=== PATIENT | male | born 1945 | race Caucasian/White ===

== ENCOUNTER → 2017-03-16 | Outpatient (CLI) | payer OTHER, MEDICARE ==
[~2017-03-16] MED LIST: ASCO500T3 PO; ASPI81TA28 PO; ATOR-22 PO; CHOL100027 PO; FLAX100024; METO50TA7 PO
[2017-03-16 12:29] LABS: FREE PSA 0.77 ng/ml; PROSTATE SPECIFIC ANTIGEN 2.87 ng/ml (0.000-4.000)
== END | disposition home or self-care (01) ==
LOC: C.LABBFT 11:03
PROVIDERS: ATTEND Urology
DX: N40.1 Benign prostatic hyperplasia with lower urinary tract symptoms (principal)

== ENCOUNTER → 2017-06-29 | Outpatient (CLI) | payer OTHER, MEDICARE ==
--- NOTE | 2017-06-28 08:08 | DIAGNOSTIC IMAGING REPORT ---
ABDOMEN COMPLETE (US) CLINICAL HISTORY: 71 years-old Male with R10.9 Abdominal [id number]. Acute right upper quadrant abdominal pain. Prior cholecystectomy COMPARISON: Ultrasound of the abdomen 07/01/2015, CT 07/01/2016 TECHNIQUE: Multiple real time sonographic images of the abdomen were obtained assessing jacome-scale appearance. FINDINGS: PANCREAS: The pancreas is partially obscured by bowel gas. The visualized portions of the pancreas are normal without focal lesion or pancreatic duct dilatation. LIVER: The liver demonstrates increased echogenicity measuring up to 16.0 cm in length compatible with fatty infiltration. There is no intrahepatic bile duct dilation, focal lesion, or contour nodularity. There is no ascites. GALLBLADDER: The gallbladder is surgically absent. The common bile duct measures 0.3 cm. RIGHT KIDNEY: The right kidney measures 10.1 cm. The parenchymal echotexture and cortical thickness are normal. No nephrolithiasis or hydronephrosis. LEFT KIDNEY: The left kidney measures 10.2 cm. The parenchymal echotexture and cortical thickness are normal. No nephrolithiasis or hydronephrosis. SPLEEN: The spleen measures 11 cm and is normal in echotexture. No focal lesions are identified. VASCULATURE: The inferior vena cava and abdominal aorta are not visualized secondary to body habitus and obscuring bowel gas. IMPRESSION: 1. Fatty infiltration of the liver. 2. Prior cholecystectomy. 3. No biliary ductal dilation. The above report was generated using voice recognition software. It may contain grammatical, syntax or spelling errors. Electronically signed by: Kali Lee M.D. 06/28/2017 8:06 AM Dictated Date/Time: 06/28/2017 8:02 AM
--- NOTE | 2017-06-29 09:58 | DIAGNOSTIC IMAGING REPORT ---
(CHEST) THORAX WITHOUT CT DOSE: 502.11 mGy.cm CLINICAL HISTORY: 71 years-old Male with R91.8 Multiple pulmonary [id number]. Follow-up study to assess pulmonary nodules. TECHNIQUE: Multiaxial CT images of the chest were performed without contrast. A dose lowering technique was utilized adhering to the principles of ALARA. COMPARISON: CT chest 06/22/[address] abdomen 07/01/2015 FINDINGS: No dominant thyroid nodule identified. No pathologic adenopathy of the chest. Heart is normal in size with coronary arterial disease. Calcifications of the aortic annulus also noted. Moderate atherosclerotic plaquing of the aortic arch without aneurysm identified. Upper lobe predominant mild to moderate paraseptal emphysematous changes. Azygos lobe and fissure are present. No pneumothorax, pleural effusion or focal airspace consolidation. There are a few scattered subcentimeter calcified granulomas. Mild bilateral bronchial wall thickening. 4 mm noncalcified pulmonary nodule of the right lower lobe on image 207 of series 4 is unchanged. 5 mm solid pulmonary nodule of the right middle lobe on image 177 series 4. Unchanged 5 mm nodule of the inferior segment lingula on image 184 series 4. Unchanged 4 mm nodule within the right lower lobe on image 143 series 4. No new suspicious pulmonary nodules identified. Minimal secretions within the tracheal bronchial tree. Prior cholecystectomy. The bones appear intact and are mildly demineralized. Multilevel endplate spurring of the spine. Nonspecific perinephric stranding is again seen with thickening of the left adrenal gland suggesting adrenal hyperplasia, unchanged. IMPRESSION: 1. Stable size and appearance of the scattered solid noncalcified pulmonary nodules of the bilateral lungs as above, largest of which measures up to 5 mm. The nodules at the level of the lung bases are unchanged dating back to the CT abdomen and pelvis study of 07/01/2015. No new suspicious pulmonary nodules identified. 2. Mild to moderate upper lobe predominant paraseptal emphysema with associated bilateral mild bronchial wall thickening suggesting bronchitis. 3. Additional findings as above. Please refer to below summary of Fleischner criteria recommendations for follow-up of incidental CT nodules (Ivy Duran, Guidelines for management of small pulmonary nodules detected on CT scans: A statement from the Fleischner Society, Radiology 237: [phone].) SOLID NODULES Multiple nodules size: <6 mm * Low risk patients: no routine follow-up * high risk patients: optional CT at 12 months Note: newly detected indeterminate nodule in persons 35 years of age or older. * Low risk patients: minimal or absent history of smoking and/or other known risk factors * high risk patients: history of smoking or of other known risk factors (e.g. first degree relative with lung cancer, or exposure to asbestos, radon, uranium) * if a nodule up to 8 mm is partly solid or is ground glass further follow-up is required after 24 months to exclude possible slow growing adenocarcinoma (TONY) The above report was generated using voice recognition software. It may contain grammatical, syntax or spelling errors. Electronically signed by: Kali Lee M.D. 06/29/2017 9:56 AM Dictated Date/Time: 06/29/2017 9:41 AM
== END | disposition home or self-care (01) ==
LOC: C.CTS 09:27
PROVIDERS: ATTEND Internal Medicine Geriatric Medicine
DX: R91.8 Other nonspecific abnormal finding of lung field (principal); R10.9 Unspecified abdominal pain; J43.8 Other emphysema

== ENCOUNTER 2017-08-01 07:40 | Observation (INO) | payer OTHER, MEDICARE ==
[2017-08-01] VITALS (8 sets, daily range): BP systolic 134–152; BP diastolic 75–82; PULSE 50–56; TEMP 36.5–37.2; O2SAT 97–100; Ht 172.7 cm; Wt 88.3 kg
[~2017-08-01] VITALS: Ht 172.7 cm; Wt 88.3 kg
[2017-08-01] MEDS ORDERED: SODIUM CHLORIDE 0.9% 1000ML 1,000 ML IV STA (08:04)
[2017-08-01 08:30] LABS: BASO % 0.8 %; BASO ABS # 0.05 K/uL (0-0.2); COMPLETE YES; EOS % 1.2 %; HEMATOCRIT 39.8 % (42-52); IG% 0.3 %; LYMPH % 24.8 %; LYMPH ABS # 1.64 K/uL (1.2-3.4); MEAN CELL VOLUME 91.3 fL (80-100); MEAN CORPUSCULAR HEMOGLOBIN 31.9 pg (25-34); MEAN CORPUSCULAR HGB CONC 34.9 g/dl (32-36); MEAN PLATELET VOLUME 9.2 fL (7.4-10.4); MONO % 9.5 %; NEUT % 63.4 %; PLATELET COUNT 159 K/uL (130-400); RED BLOOD COUNT 4.36 M/uL (4.7-6.1); WHITE BLOOD COUNT 6.61 K/uL (4.8-10.8)
[2017-08-01 08:42] LABS: ALT/SGPT 44 U/L (12-78); BLOOD UREA NITROGEN 21 mg/dl (7-18); CALCIUM 9.1 mg/dl (8.5-10.1); CARBON DIOXIDE 25 mmol/L (21-32); CHLORIDE 102 mmol/L (98-107); CREATININE 1.03 mg/dl (0.60-1.40); GLUCOSE 146 mg/dl (70-99); POTASSIUM 3.9 mmol/L (3.5-5.1); SODIUM 138 mmol/L (136-145)
[2017-08-01 08:47] LABS: ALKALINE PHOSPHATASE 69 U/L (45-117); AST/SGOT 21 U/L (15-37)
--- NOTE | 2017-08-01 08:48 | DIAGNOSTIC IMAGING REPORT ---
CHEST ONE VIEW PORTABLE HISTORY: Atypical CHEST PAIN COMPARISON: Chest 07/01/2015. FINDINGS: The lungs are clear. Cardiac silhouette is normal in size. No pleural effusions. No pneumothorax. IMPRESSION: No acute process. Electronically signed by: Jose Martin Ray M.D. 08/01/2017 8:47 AM Dictated Date/Time: 08/01/2017 8:46 AM
--- NOTE | 2017-08-01 08:53 | EMERGENCY ROOM VISIT NOTE ---
ED Visit Note First contact with patient: 07:49 I have seen and examined this patient with Will Mcclain and generally agree with the treatment plan as discussed. Problem List Medical Problems: (1) Asthma Status: Chronic (2) Hx of gallstones Status: Resolved (3) Hypertension Status: Chronic (4) FL (myocardial infarction) Status: Resolved Surgical Problems: (1) H/O angioplasty Status: Resolved Current/Historical Medications Scheduled Ascorbic Acid (Vitamin C), 1 TAB PO DAILY Aspirin (Aspirin Ec), 81 MG PO QPM Atorvastatin (Lipitor), 40 MG PO DAILY Cholecalciferol (Vitamin D 1000 Unit), 1,000 INTER.UNIT PO DAILY Flaxseed (Linseed) (Flaxseed Oil), DAILY Metoprolol Succ (Toprol Xl) (Toprol-Xl), 50 MG PO DAILY Allergies Coded Allergies: Sulfa Antibiotics (Verified Allergy, Mild, ., 07/01/15) Vital Signs Date Time Temp Pulse Resp B/P (MAP) Pulse Ox O2 Delivery O2 Flow Rate FiO2 08/01/17 07:49 67 08/01/17 07:48 50 20 166/78 97 Room Air 08/01/17 07:48 97 Room Air Laboratory Results 08/01/17 08:20 Red Blood Count 4.36, Mean Corpuscular Volume 91.3, Mean Corpuscular Hemoglobin 31.9, Mean Corpuscular Hemoglobin Concent 34.9, Mean Platelet Volume 9.2, Neutrophils (%) (Auto) 63.4, Lymphocytes (%) (Auto) 24.8, Monocytes (%) (Auto) 9.5, Eosinophils (%) (Auto) 1.2, Basophils (%) (Auto) 0.8, Neutrophils # (Auto) 4.19, Lymphocytes # (Auto) 1.64, Monocytes # (Auto) 0.63, Eosinophils # (Auto) 0.08, Basophils # (Auto) 0.05 08/01/17 08:20 Test 08/01/17 08:20 08/01/17 08:21 White Blood Count 6.61 K/uL (4.8-10.8) Red Blood Count 4.36 M/uL (4.7-6.1) Hemoglobin 13.9 g/dL (14.0-18.0) Hematocrit 39.8 % (42-52) Mean Corpuscular Volume 91.3 fL (80-100) Mean Corpuscular Hemoglobin 31.9 pg (25-34) Mean Corpuscular Hemoglobin Concent 34.9 g/dl (32-36) Platelet Count 159 K/uL (130-400) Mean Platelet Volume 9.2 fL (7.4-10.4) Neutrophils (%) (Auto) 63.4 % Lymphocytes (%) (Auto) 24.8 % Monocytes (%) (Auto) 9.5 % Eosinophils (%) (Auto) 1.2 % Basophils (%) (Auto) 0.8 % Neutrophils # (Auto) 4.19 K/uL (1.4-6.5) Lymphocytes # (Auto) 1.64 K/uL (1.2-3.4) Monocytes # (Auto) 0.63 K/uL (0.11-0.59) Eosinophils # (Auto) 0.08 K/uL (0-0.5) Basophils # (Auto) 0.05 K/uL (0-0.2) RDW Standard Deviation 43.9 fL (36.4-46.3) RDW Coefficient of Variation 13.2 % (11.5-14.5) Immature Granulocyte % (Auto) 0.3 % Immature Granulocyte # (Auto) 0.02 K/uL (0.00-0.02) Anion Gap 11.0 mmol/L (3-11) Est Creatinine Clear Calc Drug Dose 49.0 ml/min Estimated GFR () 85.5 Estimated GFR (Non- 73.8 BUN/Creatinine Ratio 20.0 (10-20) Calcium Level 9.1 mg/dl (8.5-10.1) Total Bilirubin 0.7 mg/dl (0.2-1) Direct Bilirubin 0.2 mg/dl (0-0.2) Aspartate Amino Transf (AST/SGOT) 21 U/L (15-37) Alanine Aminotransferase (ALT/SGPT) 44 U/L (12-78) Alkaline Phosphatase 69 U/L (45-117) Troponin I < 0.015 ng/ml (0-0.045) Total Protein 6.9 gm/dl (6.4-8.2) Albumin 3.8 gm/dl (3.4-5.0) Lipase 214 U/L (73-393) Bedside Troponin I < 0.030 ng/ml (0-0.045) Departure Information Referrals Eric Rees M.D. (PCP) Patient Instructions [facility]
[2017-08-01] MEDS ORDERED: ALUMINUM/MAGNESIUM/SIMETH (MAALOX MAX) 30 ML UDC PO PRN (09:00)
[2017-08-01] MEDS: ASPIRIN 325 MG ECTAB PO SCH (09:00)
[2017-08-01] MEDS: ATORVASTATIN 40 MG TAB PO SCH (09:00)
[2017-08-01] MEDS ORDERED: MoRPHine SULFATE 2 MG/ML CARP IV PRN (09:00)
[2017-08-01] MEDS ORDERED: METOPROLOL SUCC 50MG EXT REL TAB PO SCH (09:00)
[2017-08-01] MEDS ORDERED: ACETAMINOPHEN 325 MG TAB PO PRN (09:00)
[2017-08-01] MEDS ORDERED: NITROGLYCERIN 0.4 MG SL PER TAB CHARGE SL PRN (09:00)
[2017-08-01] MEDS ORDERED: ONDANSETRON INJ 2 MG/ML 2 ML VIAL IV PRN (09:00)
[2017-08-01] MEDS ORDERED: MAGNESIUM HYDROXIDE SUSP 30 ML UDC PO PRN (09:00)
[2017-08-01] MEDS ORDERED: ATOR80TA PO (09:01)
[2017-08-01] MEDS ORDERED: HydrALAZINE HCL 20 MG/ML VIAL IV PRN (09:30)
[2017-08-01] MEDS ORDERED: NURSING VERBAL MED ORDER ONE (10:30)
[2017-08-01] MEDS ORDERED: IV FLUIDS COMPLETED PRN (12:30)
--- NOTE | 2017-08-01 13:34 | CARDIOLOGY CONSULTATION ---
DATE OF CONSULTATION: 08/01/2017 REASON FOR CONSULTATION: Accelerating chest pain. CONSULTATION REQUESTED BY: Dr. Waters. HISTORY OF PRESENT ILLNESS: Mr. Dugan is a 71-year-old man with a history of coronary artery disease status post prior DC in the s, hypertension, diet-controlled diabetes, hyperlipidemia, prior peripheral vascular disease status post carotid endarterectomy who presents with worsening chest pain over the last several weeks. The patient states that he has been having episodes of chest discomfort for the last 3 months. He describes episodes of substernal tightness with radiation to his arms bilaterally and occasionally to his jaw. This is occasionally associated with diaphoresis and flushing. These episodes can occur at any time most notably when he is exerting himself but not always. Denies any associated palpitations, presyncope. Denies any heart failure symptoms. He presented to the Emergency Department last night because episodes of syncope occurring more frequently over the last several weeks including 2 over the last day. These episodes last for several minutes and go away just with rest. Upon presentation, the patient was hemodynamically stable. He was bradycardic with heart rates down in the 50s. His EKG showed sinus rhythm with no dynamic ST changes with supportive care and subsequent troponins were negative. Since admission, he has been chest pain free. PRIOR CARDIAC HISTORY: The patient was previously followed by Dr. العراقي and was last seen by him in May 2015. He initially underwent a cardiac catheterization in 1995 in the setting of a mildly elevated troponin while had pneumonia. Per documentation, he was found to have nonocclusive coronary artery disease with a 50% RCA and 2 serial 50% LAD lesions and was treated with medical management. Since that time, he underwent multiple prior stress tests, most recently had a nuclear stress test done in February of 2014. At that time, the patient was bradycardic at rest while on beta collin. He was only able to get his heart rate to 57% maximum predicted, he exercised for 7 minutes achieving 9 mets. Stress test was read as negative for any ischemia or infarct with preserved EF of 54%. The patient is also followed by Dr. Valderrama for his vascular disease. He is status post s carotid endarterectomy in 2008 and has no residual moderate disease on the left, was endorsing some symptoms consistent with claudication. Back in 2015, underwent a CTA which showed moderate right common femoral artery disease and significant right anterior tibial disease with distal 3-vessel runoff and was also noted to have severe 80% stenosis at the orgin of his left superficial femoral artery. PAST MEDICAL HISTORY: 1. Coronary artery disease status post DC as discussed above. 2. Hypertension. 3. Hyperlipidemia. 4. Diabetes, on oral therapy. 5. Pulmonary nodules. 6. PTSD. 7. Prior cholecystitis status post cholecystectomy with a partial small bowel resection at that time. FAMILY HISTORY: A brother had an DC in his 40s and underwent bypass surgery at that time and has since had 17 stents her patient. SOCIAL HISTORY: Remote smoker. Denies any tobacco or alcohol now. He is . HOME MEDICATIONS: Include aspirin 81, atorvastatin 80, lisinopril/hydrochlorothiazide 25/25, Proventil inhaler, vitamin B12, and vitamin D. ALLERGIES: ALLERGIC TO SULFA DRUGS. REVIEW OF SYSTEMS: Ten-point review of systems completed and otherwise negative unless stated in HPI. PHYSICAL EXAMINATION: VITAL SIGNS: Temperature 36.5, pulse 50, blood pressure 144/82 and he is satting 98% on room air. GENERAL: The patient appears comfortable, in no acute distress. HEENT: Sclerae are anicteric. Oropharynx clear. His mucous membranes are moist. NECK: Supple. He has no lymphadenopathy. He has no carotid bruits. LUNGS: Clear to auscultation bilaterally. HEART: He has distant heart sounds, but no appreciable murmurs, rubs or gallops. He is bradycardic. ABDOMEN: Soft. He has mild tenderness in the epigastric region with deep palpation, otherwise no hepatosplenomegaly. EXTREMITIES: Warm with intact distal perfusion/capillary refill. He has nonpalpable PT pulses bilaterally. He has 2+ DP on the left, 1+ on the right. He has 2+ radial pulses bilaterally. SKIN: Shows no rashes or lesions. NEUROLOGIC: Nonfocal. PSYCHIATRIC: He is alert and appropriate. LABORATORY DATA: Hemoglobin is 13.9, platelets of 159. Sodium of 138, potassium of 3.9, BUN 21, creatinine of 1.0. LFTs within normal limits. Troponin negative. IMAGING DATA: Chest x-ray shows no acute cardiopulmonary process. EKG shows sinus bradycardia and a ventricular rate of [address] changes. Telemetry reviewed and shows no significant abnormalities. IMPRESSION AND PLAN: 1. Chest pain, concerning for accelerating angina. 2. History of coronary artery disease status post prior myocardial infarction in the 90s. 3. Peripheral vascular disease. 4. Diet-controlled diabetes. 5. Hypertension. 6. Hyperlipidemia. 7. Sinus bradycardia with questionable prior chronotropic incompetence. Mr. Dugan is here with chest pain concerning for accelerating angina over the last 2 weeks. His description of event is typical for coronary ischemia and with patient's prior history, risk factors including his significant family history, concern for possible unstable angina/ACS is elevated. With prior non-diagnostic stress tests in the past patient's preference is to proceed with definitive evaluation and feel that proceeding directly with cardiac catheterization is reasonable. Discussed with the patient risks, benefits, alternatives of the procedure, he is willing to proceed. We will plan on coronary angiography via right radial artery tomorrow. In the interim, please keep the patient n.p.o. pat midnight, continue on aspirin, high intensity statin. Will continue off beta collin in the setting of his bradycardia. Blood pressure well controlled on home lisinopril. Post ischemic evaluation will consider additional work-up of chronotropic incompetence as needed. Thank you for allowing us to participate in the care of this patient. Please contact with any questions. BEA
--- NOTE | 2017-08-01 14:45 | History and Physical ---
History & Physical Date & Time of Service: Aug 01, 2017 at 14:36 Chief Complaint: Chest Pain Primary Care Physician: Eric Rees M.D. History of Present Illness 71-year-old male who presents to the emergency department with what sounds like accelerated anginal symptoms. These include decreased exercise tolerance or last 2 months and chest pressure or heaviness associated with diaphoresis looking pale according to his and fatigue. He does not have any nausea and occasional jaw pain. Most recently he was awakened at 4:00 the day of presentation with this discomfort which lasted 5 minutes and went away he then tried to walk his dog around 6:00 in the symptoms recurred. He then presented to the ER where his initial evaluation did not include any significant abnormalities however the patient does have a previous history of NE in 1995 strong family history having a brother having multiple cardiac stents, currently being treated for hypertension and dyslipidemia. Patiently brought in our facility with consideration for risk stratification with this being unstable angina Past Medical/Surgical History Medical Problems: (1) Asthma Status: Chronic (2) Hypertension Status: Chronic (3) NE (myocardial infarction) Status: Resolved Surgical Problems: (1) H/O angioplasty Status: Resolved Family History Gallbladder disease Heart disease Hypertension Lung disease Social History Smoking Status: Former Smoker Drug Use: none Marital Status: Occupational Status: retired Immunizations History of Influenza Vaccine: No History of Tetanus Vaccine?: No History of Pneumococcal: Yes Pneumococcal Date: Sep 06, 2005 History of Hepatitis B Vaccine: No Multi-Drug Resistant Organisms History of MDRO: No Allergies Coded Allergies: Sulfa Antibiotics (Verified Allergy, Mild, ., 08/01/17) Home Medications Scheduled Ascorbic Acid (Vitamin C), 1 TAB PO DAILY Aspirin (Aspirin Ec), 81 MG PO QPM Atorvastatin Calcium (Lipitor), 80 MG PO PM Cholecalciferol (Vitamin D 1000 Unit), 1,000 INTER.UNIT PO DAILY Flaxseed (Linseed) (Flaxseed Oil), DAILY Review of Systems ROS: well nourished well developed No double vision blurry vision No problems with speech or swallowing No palpitations, but having intermittent chest pain and pressure No Wheezing or but having some dyspnea associated with symptoms No abdominal pain nausea vomiting diarrhea changes in appetite or weight No burning urine urine frequency or changes in color No focal joint pain or muscle pain No skin rashes or oral lesions No unusual bruising or bleeding No focused back pain or numbness or loss of strength No changes in memory or confusion Physical Exam Vital Signs Date Time Temp Pulse Resp B/P (MAP) Pulse Ox O2 Delivery O2 Flow Rate FiO2 08/01/17 12:10 36.5 50 16 144/82 (102) 98 Room Air 08/01/17 12:00 99 Room Air 08/01/17 10:30 36.6 52 17 139/82 (101) 100 Room Air 08/01/17 09:57 144/78 98 08/01/17 09:20 97 Room Air 08/01/17 07:49 67 08/01/17 07:48 50 20 166/78 97 Room Air 08/01/17 07:48 97 Room Air General Appearance: WD/WN, no apparent distress Head: normocephalic, atraumatic Eyes: PERRL, EOMI ENT: hearing grossly normal, pharynx normal Respiratory/Chest: chest non-tender, lungs clear, normal breath sounds Cardiovascular: regular rate, rhythm, no murmur Abdomen/GI: normal bowel sounds, non tender, soft Back: no CVA tenderness, no muscle spasm, normal range of motion Extremities/Musculoskelatal: no pedal edema, normal range of motion Neurologic/Psych: alert, oriented x 3 Skin: normal color, warm/dry, no rash Diagnostics Laboratory Results Results Past 24 Hours Test 08/01/17 08:20 08/01/17 08:21 Range/Units White Blood Count 6.61 4.8-10.8 K/uL Red Blood Count 4.36 4.7-6.1 M/uL Hemoglobin 13.9 14.0-18.0 g/dL Hematocrit 39.8 42-52 % Mean Corpuscular Volume 91.3 80-100 fL Mean Corpuscular Hemoglobin 31.9 25-34 pg Mean Corpuscular Hemoglobin Concent 34.9 32-36 g/dl Platelet Count 159 130-400 K/uL Mean Platelet Volume 9.2 7.4-10.4 fL Neutrophils (%) (Auto) 63.4 % Lymphocytes (%) (Auto) 24.8 % Monocytes (%) (Auto) 9.5 % Eosinophils (%) (Auto) 1.2 % Basophils (%) (Auto) 0.8 % Neutrophils # (Auto) 4.19 1.4-6.5 K/uL Lymphocytes # (Auto) 1.64 1.2-3.4 K/uL Monocytes # (Auto) 0.63 0.11-0.59 K/uL Eosinophils # (Auto) 0.08 0-0.5 K/uL Basophils # (Auto) 0.05 0-0.2 K/uL RDW Standard Deviation 43.9 36.4-46.3 fL RDW Coefficient of Variation 13.2 11.5-14.5 % Immature Granulocyte % (Auto) 0.3 % Immature Granulocyte # (Auto) 0.02 0.00-0.02 K/uL Sodium Level 138 136-145 mmol/L Potassium Level 3.9 3.5-5.1 mmol/L Chloride Level 102 98-107 mmol/L Carbon Dioxide Level 25 21-32 mmol/L Anion Gap 11.0 3-11 mmol/L Blood Urea Nitrogen 21 7-18 mg/dl Creatinine 1.03 0.60-1.40 mg/dl Est Creatinine Clear Calc Drug Dose 49.0 ml/min Estimated GFR () 85.5 Estimated GFR (Non- 73.8 BUN/Creatinine Ratio 20.0 10-20 Random Glucose 146 70-99 mg/dl Calcium Level 9.1 8.5-10.1 mg/dl Total Bilirubin 0.7 0.2-1 mg/dl Direct Bilirubin 0.2 0-0.2 mg/dl Aspartate Amino Transf (AST/SGOT) 21 15-37 U/L Alanine Aminotransferase (ALT/SGPT) 44 12-78 U/L Alkaline Phosphatase 69 45-117 U/L Troponin I < 0.015 0-0.045 ng/ml Total Protein 6.9 6.4-8.2 gm/dl Albumin 3.8 3.4-5.0 gm/dl Lipase 214 73-393 U/L Hepatitis C Antibody Screen NEG NEG Bedside Troponin I < 0.030 0-0.045 ng/ml CXR normal other (no acute ECG changes except for bradycardia) Impression Assessment and Plan 71-year-old male with unstable or accelerated angina Patiently run or facility trending his troponin audiology consultation for possible catheterization versus stress test maintaining aspirin and Lipitor. We are holding on a beta collin therapy due to his resting baseline bradycardia For hypertension control maintain his lisinopril with when necessary hydralazine we are holding his hydrochlorothiazide was It is noted in his history of a description of a 4 mm right lung nodule this is reportedly stable but this will be followed with a pulmonary nodule program DVD preventions early ambulation Advanced Directives Existing Living Will: Yes Existing Power of Product Technician: Yes VTE Prophylaxis VTE Risk Assessment Done? Y/N: Yes Risk Level: Moderate Given or contraindicated: T.E.D. Stockings, SCD's
[2017-08-02] VITALS (19 sets, daily range): BP systolic 100–162; BP diastolic 62–84; PULSE 51–82; TEMP 36.6–36.8; O2SAT 95–98
--- NOTE | 2017-08-02 06:00 | EMERGENCY ROOM VISIT NOTE ---
ED Visit Note First contact with patient: 07:49 Chief Complaint: Chest pain. History of Present Illness: Mr. Dugan is a 71 year-old white male ambulates into the ED accompanied by female friend complaining of chest pain. Historically patient reports history of acute NE at age 49, diabetes, peripheral vascular disease, hypertension and dyslipidemia. Additionally he does report that he has a brother with severe coronary artery disease and has had 14 stents placed. Patient reports over the last 2 months he has been having daily episodes of chest discomfort. These occur at rest and with activity. They self resolve after a few minutes of rest. Patient reports intermittently these episodes have been associated with shortness of breath, diaphoresis and nausea but not every time he has an episode of discomfort. Both he and his does report that they've been increasing in regularity and over the last few days he has had multiple episodes. Patient reports approximately 4 AM he was awoken from sleep with an acute onset of midsternal chest tightness. This episode lasted for approximately 3-4 minutes and then self resolved. He reports associated with this he had pain in his upper shoulders. He did not identify any aggravating or alleviating factors related to the discomfort. He did not take any medication for discomfort prior to arrival at the hospital. Associated with his pain he reports he did not feel short of breath with his reports she noticed that he appeared to be having difficulty breathing. He goes on to report while he was awake at 6 AM he had a second episode of chest tightness. Once again this lasted for 3-4 minutes and self resolved. He did have bilateral arm discomfort but this was in the lower arms this time and not in the shoulders. And once again he did not take any medications for his discomfort prior to arrival at the hospital. Currently he is symptom-free. Patient denies fevers, chills, sweats, skin eruptions, skin color changes, upper respiratory tract symptoms, wheezing, cough, orthopnea, dependent edema, previous clots, claudication, cramping, abdominal pain, nausea, vomiting, diarrhea, constipation, rectal bleeding, black/tarry stools, urinary symptoms, back/flank pain. Review of Systems: As noted above in history of present illness. All body systems were reviewed and found to be negative as noted above. Past Medical History: As previously noted Current Medications: Medications Dose Route/Sig Max Daily Dose Days Date Category Lipitor (Atorvastatin Calcium) 80 Mg Tab 80 Mg PO PM 08/01/17 Reported Vitamin C (Ascorbic Acid) 500 Mg Tab 1 Tab PO DAILY 07/01/15 Reported Aspirin Ec (Aspirin) 81 Mg Tab 81 Mg PO QPM 08/20/14 Reported Vitamin D 1000 Unit (Cholecalciferol) 1,000 Unit Cap 1,000 Inter.unit PO DAILY 08/01/14 Reported Flaxseed Oil (Flaxseed (Linseed)) 1,000 Mg Cap DAILY 08/01/14 Reported Allergies to Medications: Sulfa. Social History: Patient is not currently employed; he feels safe in his home environment; he denies tobacco use. Physical Examination: Vital Signs: Date Time Temp Pulse Resp B/P (MAP) Pulse Ox O2 Delivery O2 Flow Rate FiO2 08/01/17 07:49 67 08/01/17 07:48 50 20 166/78 97 Room Air GENERAL: 71-year-old male in no acute distress, nontoxic-appearing, afebrile and hemodynamically stable. NEUROLOGICAL: Awake, alert and oriented to person, place and time. Answering questions appropriately and following commands. Normal gait. Good hand eye coordination. SKIN: Warm, dry and pink. No soft tissue eruptions or trauma noted. HEENT: Atraumatic and normocephalic. PERRLA. Sclera white and conjunctiva pink. Oral cavity moist and pink. Pharynx is nonerythematous or edematous. Speech normal. No lymphadenopathy. Trachea midline. No jugular venous distention. BACK: No tenderness over the bony spine. No CVA tenderness. No carotid bruits. THORAX: Lungs sounds are clear to auscultation and equal bilaterally with symmetrical chest wall. No wheezing, rales or rhonchi. No crepitus, tenderness , subcutaneous air or deformities noted. HEART: Regular rate and rhythm. No gallops, rubs or murmurs are appreciated. No lifts, heaves or thrills. PMI is not displaced. ABDOMEN: Flat, soft and nontender. Positive bowel sounds in all quadrants. No guarding, rigidity or organomegaly. EXTREMITIES: Moves all extremities well on command and with purpose. All distal neurovascular statuses are intact and equal bilaterally. No dependent edema or calf tenderness/cords. ED Course: Patient is assessed as noted above. Patient's medication list was reviewed. Laboratory Testing: Test 08/01/17 08:20 08/01/17 08:21 Range/Units White Blood Count 6.61 4.8-10.8 K/uL Red Blood Count 4.36 4.7-6.1 M/uL Hemoglobin 13.9 14.0-18.0 g/dL Hematocrit 39.8 42-52 % Mean Corpuscular Volume 91.3 80-100 fL Mean Corpuscular Hemoglobin 31.9 25-34 pg Mean Corpuscular Hemoglobin Concent 34.9 32-36 g/dl Platelet Count 159 130-400 K/uL Mean Platelet Volume 9.2 7.4-10.4 fL Neutrophils (%) (Auto) 63.4 % Lymphocytes (%) (Auto) 24.8 % Monocytes (%) (Auto) 9.5 % Eosinophils (%) (Auto) 1.2 % Basophils (%) (Auto) 0.8 % Neutrophils # (Auto) 4.19 1.4-6.5 K/uL Lymphocytes # (Auto) 1.64 1.2-3.4 K/uL Monocytes # (Auto) 0.63 0.11-0.59 K/uL Eosinophils # (Auto) 0.08 0-0.5 K/uL Basophils # (Auto) 0.05 0-0.2 K/uL RDW Standard Deviation 43.9 36.4-46.3 fL RDW Coefficient of Variation 13.2 11.5-14.5 % Immature Granulocyte % (Auto) 0.3 % Immature Granulocyte # (Auto) 0.02 0.00-0.02 K/uL Sodium Level 138 136-145 mmol/L Potassium Level 3.9 3.5-5.1 mmol/L Chloride Level 102 98-107 mmol/L Carbon Dioxide Level 25 21-32 mmol/L Anion Gap 11.0 3-11 mmol/L Blood Urea Nitrogen 21 7-18 mg/dl Creatinine 1.03 0.60-1.40 mg/dl Est Creatinine Clear Calc Drug Dose 49.0 ml/min Estimated GFR () 85.5 Estimated GFR (Non- 73.8 BUN/Creatinine Ratio 20.0 10-20 Random Glucose 146 70-99 mg/dl Calcium Level 9.1 8.5-10.1 mg/dl Total Bilirubin 0.7 0.2-1 mg/dl Direct Bilirubin 0.2 0-0.2 mg/dl Aspartate Amino Transf (AST/SGOT) 21 15-37 U/L Alanine Aminotransferase (ALT/SGPT) 44 12-78 U/L Alkaline Phosphatase 69 45-117 U/L Troponin I < 0.015 0-0.045 ng/ml Total Protein 6.9 6.4-8.2 gm/dl Albumin 3.8 3.4-5.0 gm/dl Lipase 214 73-393 U/L Hepatitis C Antibody Screen NEG NEG Bedside Troponin I < 0.030 0-0.045 ng/ml Chest X-Rays: Were read by myself and the radiologist showing no acute infiltrates, effusions or pneumothorax. Normal heart silhouette and bony anatomy. EKG: Was read by myself and reviewed with Dr. Strauss; shows sinus bradycardia with a ventricular rate of 50 bpm. No acute ischemic changes were noted. I did compare this to previous from June 2015 and note that his ST segments are depressed in leads 2, 3 and aVF when compared to the previous. Patient was hydrated with normal saline. Patient was assessed multiple times during his stay in the emergency department and did never have a recurrence of chest discomfort. Patient's case was reviewed with Dr. Strauss; in apparently assessed the patient we agreed on diagnostic approach, treatment, disposition and plan. Patient's case was consulted with case management and Dr. Waters, hospitalist , for medical observation/admission. Patient was educated about today's findings. Clinical Impression: Unstable angina. Decision-Making: Initially my differential diagnosis I considered acute coronary syndrome, unstable angina, pulmonary embolism, pneumothorax, pneumonia , musculoskeletal disorder and other causes. Disposition and Plan: Patient to be brought in the hospital for observation/ admission by the hospitalist; please see their notes and orders for final disposition and plan.
[2017-08-02 06:50] LABS: HEMATOCRIT 43.3 % (42-52); MEAN CELL VOLUME 91.9 fL (80-100); MEAN CORPUSCULAR HEMOGLOBIN 31.6 pg (25-34); MEAN CORPUSCULAR HGB CONC 34.4 g/dl (32-36); MEAN PLATELET VOLUME 9.4 fL (7.4-10.4); PLATELET COUNT 175 K/uL (130-400); RED BLOOD COUNT 4.71 M/uL (4.7-6.1); WHITE BLOOD COUNT 6.84 K/uL (4.8-10.8)
[2017-08-02 07:23] LABS: BUN/CREATININE RATIO 18.2 (10-20); CALCIUM 8.7 mg/dl (8.5-10.1); CREATININE 1.09 mg/dl (0.60-1.40); POTASSIUM 4.2 mmol/L (3.5-5.1)
[2017-08-02] MEDS: ASPIRIN 325 MG ECTAB PO SCH (07:30)
[2017-08-02] MEDS: ATORVASTATIN 40 MG TAB PO SCH (07:30)
[2017-08-02] MEDS: LISINOPRIL 20 MG TAB PO SCH (07:30)
--- NOTE | 2017-08-02 10:51 | Procedure Note ---
Pre-Mod Sedation Assessment General Date of Moderate Sedation: Aug 02, 2017. Vital Signs: Vital Signs Past 12 Hours Date Time Temp Pulse Resp B/P (MAP) Pulse Ox O2 Delivery O2 Flow Rate FiO2 08/02/17 08:00 95 Room Air 08/02/17 08:00 36.6 51 18 146/77 (100) 96 Room Air 08/02/17 04:02 36.8 60 18 147/69 (95) 95 Room Air 08/02/17 04:00 Room Air 08/01/17 23:59 Room Air 08/01/17 23:50 37.2 56 17 152/77 (102) 97 Room Air Review Cardiovascular: regular rate, rhythm, no edema Abdomen: normal bowel sounds, non tender Lungs: chest non-tender, lungs clear Airway Class: III Pre-Sedation Airway Assessment Oral Cavity: WNL Able to Visualize Vocal Cords: No Short Thick Neck: No Hx of Sleep Apnea: No Smoking Status: Former Smoker Mallampati Classification: Class III ASA Classification: Class III Procedure Planning Contraindications-for Mod Sed: None Yes Notes The planned sedation has been discussed with the patient and consent obtained. I have identified the patient, determined the appropriateness of sedation and have assessed the patient immediately prior to the procedure. All medicine(s) and interventions are by my order.
[2017-08-02] MEDS ORDERED: NiCARDipine HCL INJ 2.5 MG/ML 10 ML AMP ONE (10:56)
[2017-08-02] MEDS ORDERED: HEPARIN SOD (PORCINE) 1000 UNIT/ML 10 ML VIAL ONE ×2 (10:56→12:24)
[2017-08-02] MEDS ORDERED: FENTANYL CITRATE INJ 50 MCG/1 ML 2 ML VIAL ONE (10:56)
[2017-08-02] MEDS ORDERED: MIDAZOLAM HCL 1 MG/ML 2ML VIAL ONE (10:56)
[2017-08-02] MEDS ORDERED: NITROGLYCERIN/D5W 100MCG/ML 20ML SYR ONE (10:57)
[2017-08-02] MEDS ORDERED: DOPamine 400MG / 250ML D5W ONE (12:09)
[2017-08-02] MEDS ORDERED: ACETAMINOPHEN 325 MG TAB PO PRN (13:45)
[2017-08-02] MEDS ORDERED: EPTIFIBATIDE BOLUS / DRIP IV STA (13:51)
--- NOTE | 2017-08-02 14:09 | Cardiac Catheterization ---
Procedure Note Procedure Date Aug 02, 2017. Pre-Procedure Diagnosis Acute Coronary Syndrome AUC Score 7 Post-Procedure Diagnosis Severe CAD, Unsuccessful PCI, Elevated Intracardiac Pressures Procedure(s) Performed Coronary Angiography, Left Heart Cath, PTCA Travel Manager Fer Application Analyst(s) Valentin Estimated Blood Loss 15 Medication(s) Fentanyl, Heparin, Nicardipine, Nitroglycerin, Versed, Lidocaine 1% Summary of Findings Indication: Unstable angina Access: 6Fr slender right radial artery Catheters: [place], kati, multipurpose, JL3.5, tracker; JR4 guide Findings: RCA - Dominant, calcified 95+% proximal stenosis, diffuse moderate to severe disease in the mid segment; 80-90% distal R-PDA Circumflex - 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 Suspected ostial disease, moderate mid segment disease and severe disease in proximal small distal OM. LAD - Moderate caliber vessel, moderate 40-50% mid segment disease; distal vessel tapers before apex. 1st diagonal with mild-moderate disease. LVEDP - 24 Decision made to proceed with attempted PCI of RCA with plan for medical management of small circumflex disease. -- PCI -- Antithrombotic therapy: heparin Procedure: RCA cannulated with JR4 guide Difficulty passing wire across proximal RCA lesion. With attempts developed inferior ST elevations and chest pain. Eventually able to pass a cougar wire into distal vessel Proximal RCA lesion predilated with 2.0 and 3.0 compliant balloons --> chest pain and ST elevations resolved. Unable to pass even 1.5 balloon past more proximal lesion into mid segment. Decision made to abort procedure to due to high calcium burden and likely need for some type of atherectomy for successful completion of procedure. Post procedure PAMELA 3 flow, residual 60-70% stenosis with possible small dissection at ballooned lesion. Arterial Closure: TR Band Summary: 1. 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 2. PTCA of proximal RCA with 3.0 compliant balloon. Unable to stent lesion due to heavy calcification/angulation limiting ability to pass equipment distally. Recommendations: Will plan to transfer to [facility] for consideration of complex PCI with atherectomy. Discussed with Dr. Jensen and Dr. Prince [place] [facility] For now to PCU for continued monitoring In case decision made to pursue bypass surgery will keep on Integrilin infusion. Patient did not receive oral P2Y12 inhibitor. Continue ASA, high-intensity statin. Beta-collin on hold due to bradycardia. Hemodynamics Rest Ao: 113/55/79 Final Ao: 156/71/105 LV: 171/24 Recommendations PCI without planned CABG Specimens None Radiation Exposure (mGy) 5158 Contrast (mls) 255 Visi Fluids (cc crystalloids) 181 Drains None Anesthesia Moderate Procedural Complication(s) None Disposition PCU ACC Data Cardiac Status Clinical evaluation leading to the procedure CAD Presntation: Unstable angina Anginal Classification: CCS III Heart Failure: No, NYHA Class: CCS I Cardiogenic Shock w/in 24Hrs: No Cardiac Arrest w/in 24Hrs: No Imaging studies past 6 months: No Stress studies past 6 months: No Closure Device Percutaneous Entry Location: Radial Closure Device: Radial Band Recommendations: PCI without planned CABG PCI Indication: Unstable Angina Lesion Segment Name: Proximal RCA Culprit Artery: Yes Stenosis Prior to Rx (%): 99 Chronic Total Occlusion: No IVUS: No FFR: No Pre-Procedure PAMELA Flow: 3 Previously Treated Lesion: No Lesion Complexity: High/C Lesion Length (mm): 30 Thrombus Present: Yes Bifurcation Lesion: No Guidewire Across Lesion: Yes Guidewire: Stenosis Post-Procedure (%): 60-70% Post-Procedure PAMELA Flow: 3 Device(s) Deployed: No Intraprocedure Events Significant Dissection: No Perforation: No
--- NOTE | 2017-08-02 14:11 | Discharge Instructions ---
Discharge Instructions Date of Service Aug 02, 2017. Admission Reason for Admission: Chest Pain Discharge Discharge Diagnosis / Problem: Unstable angina, ACS Discharge Goals Goal(s): Decrease discomfort, Improve function, Increase independence Activity Recommendations Activity Limitations: per Instructions/Follow-up section . Instructions / Follow-Up Instructions / Follow-Up Home Care: * Take your medications exactly as directed. Don't skip doses. * Remember that recovery after a heart attack takes time. Plan to rest for at lease 4-8 weeks while you recover. Then return to normal activity when your doctor says it's okay. * Ask your doctor about joining a heart rehabilitation program. * Tell your doctor if you are feeling depressed. Feelings of sadness are common after a heart attack, but it is important that you speak to someone if you are feeling overwhelmed by these feelings. * If you are having chest pain, call 911 for an ambulance. Do NOT drive yourself to the hospital. * Ask your family members to learn CPR. * Learn to take your own blood pressure and pulse. Keep a record of your results. Ask your doctor when you should seek emergency medical attention. He or she will tell you which blood pressure reading is dangerous. Lifestyle Changes: * Maintain a healthy weight. Get help to lose any extra pounds. * Cut back on salt. * Limit canned, dried, packaged, and fast foods. * Don't add salt to your food. * Season foods with herbs instead of salt when you cook. * Break the smoking habit. Enroll in a stop-smoking program to improve your chances of success. * Limit fatty foods. * Ask your doctor about having your lipid levels checked regularly. * Build up your activity according to your doctor's recommendation. * Ask your doctor when it's okay to resume sexual activity. * Tell your doctor about any erectile dysfunction (ED) medication you are taking. Some ED medications are not safe if you take certain heart medications. * Try to manage stress. Follow Up: It is important for you to keep your follow up appointments with your medical provider. Current Hospital Diet Patient's current hospital diet: AHA Diet (Heart Healthy) Discharge Diet Recommended Diet: AHA Diet (Heart Healthy) Pending Studies Studies pending at discharge: no Medical Emergencies . Who to Call and When: Medical Emergencies: If at any time you feel your situation is an emergency, please call 911 immediately. Call 911 immediately or go to your nearest Emergency Room if you experience any of the following: Warning Signs and Symptoms of a Heart Attack * Chest pain that is not relieved by medication * Shortness of breath . Non-Emergent Contact Non-Emergency issues call your: Primary Care Provider, Commutator Operator . . "Provider Documentation" section prepared by Pennie Wood. . AMI Core Measures Reason no ASA as I/P: Treatment provided - N/A Reason no ASA at D/C: Treatment provided - N/A Reason no statin as I/P: Treatment provided - N/A Reason no statin at D/C: Treatment provided - N/A VTE Core Measure Inpt VTE Proph given/why not?: Pierre Mcbride, SCD's
--- NOTE | 2017-08-02 14:14 | Discharge Summary ---
Discharge Summary Date of Service Aug 02, 2017. Discharge Summary Admission Date: Aug 01, 2017 at 09:02 Discharge Date: Aug 02, 2017 Discharge Disposition: Acute care facility Principal Diagnosis: Severe multi-vessel CAD with unstable angina Problems/Secondary Diagnoses: Hx of NE 1996 s/p stent HTN Asthma Hyperlipidemia PTSD s/p CEA R lung nodule Immunizations: Have You Had Influenza Vaccine: No History of Tetanus Vaccine?: No History of Pneumococcal: Yes Pneumococcal Date: Sep 06, 2005 History of Hepatitis B Vaccine: No Procedures: cath 08/02 Consultations: Dr. Monroe Medication Reconciliation Continued Medications: Ascorbic Acid (Vitamin C) 500 Mg Tab 1 TAB PO DAILY Aspirin (Aspirin Ec) 81 Mg Tab 81 MG PO QPM Atorvastatin Calcium (Lipitor) 80 Mg Tab 80 MG PO PM, TAB Cholecalciferol (Vitamin D 1000 Unit) 1,000 Unit Cap 1000 INTER.UNIT PO DAILY, CAP Flaxseed (Linseed) (Flaxseed Oil) 1,000 Mg Cap DAILY Discharge Exam Pt still has L shoulder pain, but otherwise no new concerns. He did have two episodes of chest pain overnight. Has been NPO today for testing. Pt denies fever, SOB, abd pain, n/v/c/d, LE pain or swelling. Physical Exam: General Appearance: WD/WN, no apparent distress Respiratory/Chest: normal breath sounds, no respiratory distress Cardiovascular: regular rate, rhythm, no edema Abdomen / GI: non tender, soft Extremities: no calf tenderness, no pedal edema Neurologic/Psychiatric: alert, normal mood/affect, oriented x 3 Skin: normal color, warm/dry Hospital Course 71-year-old male who was admitted on 08/02 with unstable angina. Pt underwent catheterization today and noted for 99% RCA occlusion with severe multivessel disease that cannot be addressed at [facility]. Dr. Monroe arranged for transportation to [facility] for possible further procedures. Trop neg x4 Noted bradycardia, holding on a beta collin therapy due to his resting baseline bradycardia For hypertension control maintain his lisinopril with when necessary hydralazine hydrochlorothiazide held It is noted in his history of a description of a 4 mm right lung nodule this is reportedly stable but this will be followed by the pulmonary nodule program Total Time Spent: Greater than 30 minutes This includes examination of the patient, discharge planning, medication reconciliation, and communication with other providers. Discharge Instructions Please refer to the electronic Patient Visit Report (Discharge Instructions) for additional information. Follow-Up As per [facility] Additional Copies To Eric Rees M.D.
[2017-08-02] MEDS ORDERED: SODIUM CHLORIDE 0.9% 1000ML 1,000 ML IV SCH (14:15)
[2017-08-02] MEDS: EPTIFIBATIDE INJ 75 MG PREMIXED IV SCH ×2 (14:43→21:28)
[2017-08-02] MEDS ORDERED: PERFLUTREN LIPID MICROSPHERE (DEFINITY) IV ONE (15:07)
--- NOTE | 2017-08-02 16:42 | ECHOCARDIOGRAM REPORT ---
*NOTICE TO RECEIVING CONSTITUTION PARTY AGENCY This information is strictly Confidential and protected under [place] law. [place] law prohibits you from making any further disclosure of this information unless further disclosure is expressly permitted by the written consent of the person to whom it pertains or is authorized by law. A general authorization for the release of medical or other information is not sufficient for this purpose. Hospital accepts no responsibility if the information is made available to any other person, INCLUDING THE PATIENT. Interpretation Summary * Name: SHRUTHI AVILES Study Date: 08/02/2017 02:41 PM BP: 162/74 mmHg * Patient Location: 222 HR: 69 * : 1945 (M/d/yyyy) Gender: Male Height: 68 in * Age: 71 yrs Ethnicity: CA Weight: 195 lb * Ordering Physician: Raj Waters * Referring Physician: Self, Referred * Performed By: Zoe Welch RDCS * * Reason For Study: AMI * BSA: 2.0 m2 * -- Conclusions -- * There is mild concentric left ventricular hypertrophy. * Left ventricular systolic function is normal. * Grade I diastolic dysfunction, (abnormal relaxation pattern). * The left atrium is mildly dilated. * Right ventricular systolic pressure is elevated at 30-40mmHg. Procedure Details * A contrast injection of Definity was performed to improve assessment of LV function. * Contrast was injected into an intravenous site in the right arm. * One vial of Definity ultrasound contrast was diluted in normal saline to a total volume of 10 ml. A total of '2' ml of solution was administered during imaging. * Lot # [id number] of Definity utilized for procedure. * Expiration date AUG 23. * The attending nurse who injected the contrast agent was KARLI MCNALLY. Left Ventricle * The left ventricle is normal in size. * There is mild concentric left ventricular hypertrophy. * Ejection Fraction = 55-60%. * Left ventricular systolic function is normal. * Grade I diastolic dysfunction, (abnormal relaxation pattern). * The left ventricular wall motion is normal. Right Ventricle * The right ventricle is normal in size and function. * The right ventricular systolic function is normal as assessed by tricuspid annular plane systolic excursion (TAPSE) (normal >1.5 cm). Atria * The left atrium is mildly dilated. * Right atrial size is normal. Mitral Valve * The mitral valve anatomy is normal. * Significant mitral regurgitation is absent. Tricuspid Valve * The tricuspid valve is not well visualized. * There is trace tricuspid regurgitation. * Right ventricular systolic pressure is elevated at 30-40mmHg. Aortic Valve * The aortic valve is not well visualized. * No hemodynamically significant valvular aortic stenosis. * Trace aortic regurgitation. Great Vessels * The aortic root is normal size. Pericardium/Pleural * There is no pericardial effusion. MMode 2D Measurements and Calculations IVSd 1.5 cm IVSs 1.7 cm LVIDd 3.8 cm LVIDs 2.7 cm LVPWd 1.5 cm LVPWs 1.4 cm IVS/LVPW 0.99 FS 28.2 % EDV(Teich) 62.3 ml ESV(Teich) 27.9 ml EF(Teich) 55.3 % EDV(cubed) 55.3 ml ESV(cubed) 20.4 ml EF(cubed) 63.0 % % IVS thick 17.5 % % LVPW thick -2.52 % LV mass(C)d 211.4 grams LV mass(C)dI 104.6 grams/m\S\2 LV mass(C)s 154.7 grams LV mass(C)sI 76.5 grams/m\S\2 SV(Teich) 34.5 ml SI(Teich) 17.0 ml/m\S\2 SV(cubed) 34.9 ml SI(cubed) 17.2 ml/m\S\2 Ao root diam 3.4 cm Ao root area 9.2 cm\S\2 LA dimension 4.4 cm LA/Ao 1.3 LVAd ap4 29.4 cm\S\2 LVLd ap4 8.8 cm EDV(MOD-sp4) 81.0 ml EDV(sp4-el) 83.6 ml LVAs ap4 17.4 cm\S\2 LVLs ap4 7.6 cm ESV(MOD-sp4) 33.8 ml ESV(sp4-el) 33.7 ml EF(MOD-sp4) 58.3 % EF(sp4-el) 59.7 % LVAd ap2 28.3 cm\S\2 LVLd ap2 9.3 cm EDV(MOD-sp2) 72.7 ml EDV(sp2-el) 73.2 ml LVAs ap2 16.1 cm\S\2 LVLs ap2 7.6 cm ESV(MOD-sp2) 28.7 ml ESV(sp2-el) 29.0 ml EF(MOD-sp2) 60.4 % EF(sp2-el) 60.4 % LVLd %diff 5.5 % EDV(MOD-bp) 78.4 ml LVLs %diff -0.37 % ESV(MOD-bp) 31.2 ml EF(MOD-bp) 60.2 % SV(MOD-sp4) 47.2 ml SI(MOD-sp4) 23.4 ml/m\S\2 SV(MOD-sp2) 43.9 ml SI(MOD-sp2) 21.7 ml/m\S\2 SV(MOD-bp) 47.2 ml SI(MOD-bp) 23.4 ml/m\S\2 SV(sp4-el) 49.9 ml SI(sp4-el) 24.7 ml/m\S\2 SV(sp2-el) 44.2 ml SI(sp2-el) 21.9 ml/m\S\2 Doppler Measurements and Calculations MV E max tammy 91.4 cm/sec MV A max tammy 121.0 cm/sec MV E/A 0.76 MV dec time 0.31 sec Ao V2 max 148.4 cm/sec Ao max PG 8.8 mmHg Ao max PG (full) -1.55 mmHg LV V1 max PG 10.4 mmHg LV V1 max 160.9 cm/sec TR max tammy 277.2 cm/sec
[2017-08-03 00:01] VITALS: O2SAT 97
[2017-08-03 03:45] VITALS: BP 136/77; PULSE 79; TEMP 36.5; O2SAT 97
[2017-08-03 04:00] VITALS: O2SAT 97
[2017-08-03] MEDS: EPTIFIBATIDE INJ 75 MG PREMIXED IV SCH ×2 (04:08→09:16)
[2017-08-03 07:58] VITALS: BP 128/78; PULSE 68; TEMP 36.4; O2SAT 97
[2017-08-03 08:00] VITALS: O2SAT 97
[2017-08-03] MEDS: LISINOPRIL 20 MG TAB PO SCH (08:19)
[2017-08-03] MEDS: ATORVASTATIN 40 MG TAB PO SCH (08:19)
[2017-08-03 08:21] LABS: BUN/CREATININE RATIO 16.6 (10-20); CALCIUM 8.8 mg/dl (8.5-10.1); CREATININE 1.05 mg/dl (0.60-1.40); POTASSIUM 4.2 mmol/L (3.5-5.1)
[2017-08-03] MEDS ORDERED: CLOPIDOGREL BISULFATE 75 MG TAB PO SCH (09:00)
[2017-08-03] MEDS ORDERED: ASPIRIN 81 MG ECTAB PO SCH (09:00)
--- NOTE | 2017-08-03 16:14 | Progress Note ---
Progress Note Date of Service Aug 03, 2017. Progress Note Patient is pured to go to [facility] for cardiac evaluation of possible high risk PCI versus revascularization. I visited the patient prior to him leaving he was in good spirits accompanied by his son at bedside. His vitals were reviewed and stable. No chest pain overnight. Integrilin drip was continued. The patient be transported to [facility] as prearranged
== END 2017-08-03 10:41 | disposition short-term general hospital (02) ==
LOC: C.EDB 07:41 → C.2T 09:02 → ENRESERV 09:28
PROVIDERS: ADMIT Internal Medicine; ATTEND Internal Medicine
DX: I25.10 Atherosclerotic heart disease of native coronary artery without angina pectoris (principal); I20.0 Unstable angina; I25.2 Old myocardial infarction; R00.1 Bradycardia, unspecified; E11.9 Type 2 diabetes mellitus without complications; I73.9 Peripheral vascular disease, unspecified; I10 Essential (primary) hypertension; E78.5 Hyperlipidemia, unspecified; J45.909 Unspecified asthma, uncomplicated; Z79.82 Long term (current) use of aspirin; Z88.2 Allergy status to sulfonamides; Z95.5 Presence of coronary angioplasty implant and graft; Z87.891 Personal history of nicotine dependence; Z82.49 Family history of ischemic heart disease and other diseases of the circulatory system; Z79.84 Long term (current) use of oral hypoglycemic drugs; Z90.49 Acquired absence of other specified parts of digestive tract

== ENCOUNTER → 2017-11-04 | Outpatient (CLI) | payer OTHER, MEDICARE ==
[~2017-11-04] MED LIST changes: -ATOR-22 PO; +ATOR80TA PO; -METO50TA7 PO
--- NOTE | 2017-11-04 09:52 | DIAGNOSTIC IMAGING REPORT ---
SINUS CT WITHOUT CONTRAST CLINICAL HISTORY: Facial discomfort. Loss of taste. COMPARISON STUDY: None. Technique: Helical axial images of the sinuses were obtained without IV contrast. Coronal reformats were viewed. A dose lowering technique was utilized adhering to the principles of ALARA. CT DOSE: 653.19 mGy.cm FINDINGS: Visualized portions of the intracranial contents are unremarkable on this unenhanced exam. Orbits are within normal limits. The mastoid air cells and middle ears are unremarkable. The ossicles are intact. There is moderate leftward deviation of the nasal septum with spur formation. No mass is identified within the nasal cavity or the sinuses. The cribriform plate is intact. The major drainage pathways are patent. There is mild mucosal thickening of the sinuses. No air-fluid levels are present. IMPRESSION: 1. Mild mucosal thickening of the sinuses with patent major drainage pathways. No CT evidence for acute sinusitis. 2. Moderate leftward deviation of the nasal septum with spur formation. Electronically signed by: Crispin Sweeney M.D. 11/04/2017 9:51 AM Dictated Date/Time: 11/04/2017 9:49 AM
== END | disposition home or self-care (01) ==
LOC: C.CTS 09:29
PROVIDERS: ATTEND Nurse Practitioner
DX: R51 Headache (principal); R43.2 Parageusia

== ENCOUNTER → 2017-12-21 | Outpatient (CLI) | payer OTHER, MEDICARE ==
--- NOTE | 2017-12-21 14:25 | DIAGNOSTIC IMAGING REPORT ---
R FOOT MIN 3 VIEWS ROUTINE HISTORY: 72 years-old Male M79.671 Foot pain, [id number] acute right foot pain without known injury or trauma. COMPARISON: None available TECHNIQUE: 3 views of the right foot FINDINGS: Moderate degenerative changes about the first MTP joint with mild hallux valgus deformity. The bones appear mildly demineralized. Mild degenerative changes of the interphalangeal joints. Mild degenerative spurring about the midfoot. No acute fracture or dislocation. No opaque foreign body. Mild soft tissue prominence adjacent to the first MTP joint. IMPRESSION: 1. Mild soft tissue prominence adjacent to the first MTP joint with moderate degenerative changes and hallux valgus deformity. 2. No acute fracture or dislocation. The above report was generated using voice recognition software. It may contain grammatical, syntax or spelling errors. Electronically signed by: Kali Lee M.D. 12/21/2017 2:24 PM Dictated Date/Time: 12/21/2017 2:21 PM
== END | disposition home or self-care (01) ==
LOC: C.RADBC 14:05
PROVIDERS: ATTEND Physician Assistant Medical
DX: M79.671 Pain in right foot (principal)

== ENCOUNTER 2021-10-09 18:30 | Observation (INO) ==
--- NOTE | 2021-10-09 19:19 | Emergency Department Note ---
History of Present Illness General Chief complaint: Cardiac Assessment Stated complaint: CHEST PAIN, SOB, COLD/HOT SWEATS. PROC TOMORROW Time Seen by Provider: 10/09/21 18:59 Source: patient Mode of arrival: ambulatory Limitations: no limitations History of Present Illness Provider complaint: chest pain This is a 75-year-old male presents emergency department complaining of intermittent chest pain and need for cardiac catheterization. Patient states he has a history of heart problems and follows with Dr. Houser. Patient states several years ago he did have angioplasty performed, however no stent placed. Patient states in recent weeks he began having recurrent episodes of chest heaviness, left shoulder pain, jaw pain, and diaphoresis. Patient states his episodes seem to happen at night. He states these are similar to the symptoms that first led him to have a cardiac catheterization initially. Patient denies any recent change in medications. Patient states he has not been taking his nitro as it is . He states he did try one recently without effect. He denies any recent illness or sick contacts. Patient states the last 2 nights he has been up most of the night with persistent pain. Patient does take a low- dose aspirin daily, no other antiplatelet or anticoagulation therapy. Pt seen during a time of high acuity and national emergency pandemic while wearing PPE. Home Medications Medication Instructions Recorded Confirmed Type aspirin 81 mg tablet,delayed 81 mg PO QPM 09/30/18 10/09/21 History release atorvastatin 80 mg tablet 80 mg PO PM 09/30/18 10/09/21 History metoprolol succinate 50 mg 50 mg PO QAM 09/30/18 10/09/21 History tablet,extended release 24 hr isosorbide mononitrate 30 mg 30 mg PO DAILY #30 tab 05/04/19 10/09/21 History tablet,extended release 24 hr cholecalciferol (vitamin D3) 25 1,000 units PO DAILY 07/03/19 10/09/21 History mcg (1,000 unit) capsule cyanocobalamin (vitamin B-12) 1,000 mcg PO DAILY 07/03/19 10/09/21 History 1,000 mcg capsule flaxseed oil 1,000 mg capsule 1,000 mg PO DAILY 07/03/19 10/09/21 History lorazepam 1 mg tablet 1 mg PO DAILY PRN 05/06/20 10/09/21 History sildenafil 50 mg tablet 50 mg PO DAILY PRN #7 tab 07/03/20 10/09/21 Rx ascorbic acid (vitamin C) 500 mg 500 mg PO DAILY cap 10/09/21 10/09/21 History capsule lisinopril 10 mg tablet 10 mg PO DAILY #30 tab 10/09/21 10/09/21 Rx nitroglycerin 0.4 mg sublingual 0.4 mg SL Q5M PRN #30 tab 10/09/21 10/09/21 Rx tablet Allergies Allergy/AdvReac Type Severity Reaction Status Date / Time Sulfa (Sulfonamide Allergy Mild Rash Verified 10/09/21 10:31 Antibiotics) lisinopril Allergy Unknown COUGH Verified 10/09/21 10:31 niacin Allergy Unknown Verified 10/09/21 10:31 olmesartan [From Benicar] Allergy Unknown Verified 10/09/21 10:31 Past Med/Surg History Medical History BPH (benign prostatic hyperplasia) Chest pain (10/26/13) Coronary artery disease Dyslipidemia Former smoker Gastroesophageal reflux disease Hearing deficit BL ACUÑA Hepatic steatosis Hyperlipidemia Hypertension Inguinal hernia Left inguinal hernia Lichen planus Multiple pulmonary nodules Myocardial Infarction 1995 Osteoarthritis Past myocardial infarction Peripheral vascular disease Post traumatic stress disorder Prediabetes Pulmonary emphysema Schatzki's ring Sinus bradycardia Surgical History History of bowel resection History of cardiac cath - [facility] [place] - SOB - ANGIOPLASTY (NO STENTS) - FOLLOWS W/ DR. HOUSER 1995 - [facility] - [place] - NO STENTS/ANGIOPLASTY History of carotid endarterectomy LEFT. 2008 History of cataract surgery Bilateral. left 2018. Dr Hilton History of cholecystectomy History of colonoscopy History of esophagogastroduodenoscopy (EGD) Hx of cholecystectomy S/P small bowel resection Family History Brother Carotid artery stenosis Heart disease Hypertension Rheumatoid arthritis Sister Heart disease Diabetes Father Coronary heart disease Myocardial infarction Brother Rheumatoid arthritis Denies family history of Ovarian cancer Prostate cancer Breast cancer Lung cancer Colorectal cancer Stroke Social History Smoking Status: Never smoker Tobacco Type: Cigars Cigarettes Per Day: 20; Second Hand Exposure: No; Hx Alcohol Use: Yes Alcohol type: beer Alcohol Intake Frequency: 2-3 x/Week Hx Substance Use: No Preferred Language: Tunisian Communication Ability: Effective Visual Impairment: Limited Hearing Ability: Use of Hearing Aid Tie Binder Required: No Beliefs That Will Affect Care: None marital status: Current Living Situation: Spouse current occupational status: retired How many Children do You have: 2 Feels Safe at Home: Yes Childhood Exposure to Second-Hand Smoke: No caffeine: Yes Dental Care, Regularly: Yes Physical Activity Frequency: 3-4 Times per Week Seatbelt Use: always Sunscreen Use: Yes Assistive Devices: Hearing Aid - Bilateral Review of Systems A total of 10 systems reviewed and were otherwise negative All systems reviewed & are unremarkable except as noted in HPI & below Physical Exam Vital Signs Vital Signs - 24 hr 10/09/21 18:34 10/09/21 19:44 10/09/21 19:50 Temperature 36.6 C Temperature Source Temporal Artery Scan Pulse Rate 55 L 47 L 49 L Pulse Rate from SpO2 Sensor 48 L 49 L Pulse Rhythm Regular Respiratory Rate 20 19 15 Respiratory Effort / Characteristics Non-Labored Spontaneous Respiratory Depth Normal Blood Pressure 176/98 H Blood Pressure Mean 124 Pulse Oximetry 98 97 98 Oxygen Delivery Method Room Air Room Air Sepsis Recent Fever Within 48 Hours No Sepsis New/Unexplained Change in Mental Status No Sepsis Action Taken by Nursing No Action Required 10/09/21 20:00 10/09/21 20:10 10/09/21 20:20 Temperature Temperature Source Pulse Rate 49 L 48 L 47 L Pulse Rate from SpO2 Sensor 48 L 48 L 47 L Pulse Rhythm Respiratory Rate 16 18 26 H Respiratory Effort / Characteristics Respiratory Depth Blood Pressure 134/77 Blood Pressure Mean 96 Pulse Oximetry 97 97 97 Oxygen Delivery Method Sepsis Recent Fever Within 48 Hours Sepsis New/Unexplained Change in Mental Status Sepsis Action Taken by Nursing GENERAL: alert, well appearing, well nourished, no distress, non-toxic EYE EXAM: normal conjunctiva, PERRL and EOM's grossly intact OROPHARYNX: no exudate, no erythema, lips, buccal mucosa, and tongue normal and mucous membranes are moist NECK: supple, no nuchal rigidity, no adenopathy, non-tender LUNGS: Clear to auscultation. Normal chest wall mechanics, no w/r/r HEART: no murmurs, S1 normal and S2 normal ABDOMEN: abdomen soft, non-tender, normo-active bowel sounds, no masses, no rebound or guarding. BACK: Back is symmetrical on inspection and there is no deformity, no midline tenderness, no CVA tenderness. SKIN: no rashes and no bruising UPPER EXTREMITIES: upper extremities are grossly normal. FROM, nml pulses b/l. LOWER EXTREMITIES: No pitting edema. FROM, nml pulses b/l. NEURO EXAM: Normal sensorium, cranial nerves II-XII grossly intact, normal speech, no gross weakness of arms, no gross weakness of legs. Gross sensation intact. Course Course 192: Dr. Houser recommends heparin if recurrent pain or elevated troponin. Medical Decision Making Differential Diagnosis Differential diagnoses includes but is not limited to acute coronary syndrome, myocardial infarction, pericarditis, pulmonary embolus, aortic dissection, pneumonia, pneumothorax, musculoskeletal, shingles, esophageal. Medical Records Attestation: I reviewed the patient's medical records. Home Medications Current Medication List: was personally reviewed by me Laboratory Data Attestation: I reviewed the patient's lab results. Result diagrams: 10/09/21 19:37 10/09/21 19:37 Lab Results 10/09/21 10/09/21 10/09/21 Range/Units 19:36 19:37 19:37 WBC 7.40 (4.8-10.8) K/uL RBC 4.49 L (4.7-6.1) M/uL Hgb 14.0 (14.0-18.0) g/dL Hct 41.9 L (42-52) % MCV 93.3 (80-100) fL MCH 31.2 (25-34) pg MCHC 33.4 (32-36) g/dL RDW Std Deviation 44.9 (36.4-46.3) fL RDW Coeff of Kvng 13.2 (11.5-14.5) % Plt Count 158 (130-400) K/uL MPV 9.5 (7.4-10.4) fL Immature Gran % (Auto) 0.3 % Neut % (Auto) 66.9 % Lymph % (Auto) 22.7 % [place] % (Auto) 7.6 % Eos % (Auto) 2.0 % Baso % (Auto) 0.5 % Neut # (Auto) 4.95 (1.4-6.5) K/uL Lymph # (Auto) 1.68 (1.2-3.4) K/uL [place] # (Auto) 0.56 (0.11-0.59) K/uL Eos # (Auto) 0.15 (0-0.5) K/uL Baso # (Auto) 0.04 (0-0.2) K/uL Immature Gran # (Auto) 0.02 (0.00-0.02) K/uL PT 10.0 (9.0-12.0) Seconds INR 1.0 (0.9-1.1) APTT 25.6 (21.0-31.0) Seconds PTT Ratio 1.0 Sodium (136-145) mmol/L Potassium (3.5-5.1) mmol/L Chloride (98-107) mmol/L Carbon Dioxide (21-32) mmol/L Anion Gap (3-11) BUN (6-23) mg/dl Creatinine (0.6-1.4) mg/dl Est Cr Clr Drug Dosing ml/min Est GFR ( Amer) ml/min Est GFR (Non-Af Amer) ml/min BUN/Creatinine Ratio (10-20) Glucose (70-99(Fasting)) mg/dl Calcium (8.5-10.1) mg/dl Magnesium (1.7-2.4) mg/dl Total Bilirubin (0.2-1.0) mg/dl AST (13-39) U/L ALT (7-52) U/L Alkaline Phosphatase (34-104) U/L Troponin I (0-0.04) ng/ml Total Protein (6.0-8.3) gm/dl Albumin (3.4-5.0) gm/dl Globulin (2.5-4.0) gm/dl Albumin/Globulin Ratio (0.9-2) SARS-CoV-2, RNA, NAAT NEGATIVE (NEGATIVE) 10/09/21 Range/Units 19:37 WBC (4.8-10.8) K/uL RBC (4.7-6.1) M/uL Hgb (14.0-18.0) g/dL Hct (42-52) % MCV (80-100) fL MCH (25-34) pg MCHC (32-36) g/dL RDW Std Deviation (36.4-46.3) fL RDW Coeff of Kvng (11.5-14.5) % Plt Count (130-400) K/uL MPV (7.4-10.4) fL Immature Gran % (Auto) % Neut % (Auto) % Lymph % (Auto) % [place] % (Auto) % Eos % (Auto) % Baso % (Auto) % Neut # (Auto) (1.4-6.5) K/uL Lymph # (Auto) (1.2-3.4) K/uL [place] # (Auto) (0.11-0.59) K/uL Eos # (Auto) (0-0.5) K/uL Baso # (Auto) (0-0.2) K/uL Immature Gran # (Auto) (0.00-0.02) K/uL PT (9.0-12.0) Seconds INR (0.9-1.1) APTT (21.0-31.0) Seconds PTT Ratio Sodium 139 (136-145) mmol/L Potassium 4.2 (3.5-5.1) mmol/L Chloride 108 H (98-107) mmol/L Carbon Dioxide 25 (21-32) mmol/L Anion Gap 6 (3-11) BUN 26 H (6-23) mg/dl Creatinine 1.11 (0.6-1.4) mg/dl Est Cr Clr Drug Dosing 66.0 ml/min Est GFR ( Amer) 75.9 ml/min Est GFR (Non-Af Amer) 65.5 ml/min BUN/Creatinine Ratio 23.4 H (10-20) Glucose 156 H (70-99(Fasting)) mg/dl Calcium 8.5 (8.5-10.1) mg/dl Magnesium 1.9 (1.7-2.4) mg/dl Total Bilirubin 0.8 (0.2-1.0) mg/dl AST 21 (13-39) U/L ALT 38 (7-52) U/L Alkaline Phosphatase 58 (34-104) U/L Troponin I < 0.03 (0-0.04) ng/ml Total Protein 6.7 (6.0-8.3) gm/dl Albumin 4.3 (3.4-5.0) gm/dl Globulin 2.4 L (2.5-4.0) gm/dl Albumin/Globulin Ratio 1.8 (0.9-2) SARS-CoV-2, RNA, NAAT (NEGATIVE) Imaging Data Radiologist's Impression: Chest X-Ray 10/09/21 18:38 XR chest 1V portable HISTORY: Atypical Chest Pain COMPARISON: Chest 11/08/2018. FINDINGS: There are low lung volumes. The cardiac silhouette is top normal in size. No pleural effusion. No pneumothorax. No focal lung consolidations to suggest pneumonia. No evidence for pulmonary edema. Slightly rotated study. IMPRESSION: No acute process. ACT 112: Negative or not required by law. Electronically signed by: Jose Martin Ray M.D. 10/09/2021 7:30 PM ECG Data Attestation: I personally reviewed and interpreted this ECG as follows: Indication: + chest pain Rate (beats per minute): 50 Rhythm: + sinus bradycardia ECG Intervals/blocks: + Normal QRS and + Normal QT ECG [place]: + Normal ECG ST segments: + Normal ST segments Comparison ECG Date: from (08/03/2017) MDM Narrative This is a 75-year-old male presents emergency department after seeing Dr. Houser today in the office. Patient scheduled to have a cardiac catheterization in the morning. Due to worsening pain over the last 2 nights similar to prior anginal events, patient was referred to the emergency room. Patient with known CAD and multiple risk factors. Patient denies any current chest pain, EKG reassuring. Labs drawn and sent as a precaution. Given no current chest pain and no abnormal troponin, Dr. Houser did not feel he needed started on a heparin drip. Patient was mildly bradycardic although states this is happened previously, he was otherwise asymptomatic. Patient remained hemodynamically stable in the emergency room. Case discussed with hospitalist for additional evaluation and management. An order was placed for continuous cardiac monitoring. The monitor shows a rate of _52_ with _sinus bradycardia_ rhythm. Impression & Plan Chest pain, Hypertension, Angina at rest, Hyperglycemia Discharge Plan Visit Data Chief Complaint: Cardiac Assessment Stated Complaint: CHEST PAIN, SOB, COLD/HOT SWEATS. PROC TOMORROW ED Provider: Opal Alex Discharge Problem: Chest pain, Hypertension, Angina at rest, Hyperglycemia Patient Disposition: Being Evaluated by Hospitalist Condition: Good Forms Stand Alone Forms: [facility] [employer] Prescriptions Prescriptions: No Action sildenafil 50 mg tablet 50 mg PO DAILY PRN (Reason: sexual activity) Qty: 7 RF: 0 isosorbide mononitrate 30 mg tablet extended release 24 hr 30 mg PO DAILY Qty: 30 RF: 0 lisinopril 10 mg tablet 10 mg PO DAILY Qty: 30 RF: 6 nitroglycerin 0.4 mg tablet, sublingual 0.4 mg SL Q5M PRN (Reason: chest pain) Qty: 30 RF: 3 lorazepam 1 mg tablet 1 mg PO DAILY PRN (Reason: Anxiety) RF: 0 ascorbic acid (vitamin C) 500 mg capsule 500 mg PO DAILY RF: 0 cyanocobalamin (vitamin B-12) 1,000 mcg capsule 1,000 mcg PO DAILY RF: 0 cholecalciferol (vitamin D3) 1,000 unit capsule 1,000 units PO DAILY RF: 0 flaxseed oil 1,000 mg capsule 1,000 mg PO DAILY RF: 0 metoprolol succinate 50 mg Tablet Extended Release 24 Hr 50 mg PO QAM RF: 0 atorvastatin 80 mg Tablet 80 mg PO PM RF: 0 aspirin 81 mg Tablet,Delayed Release (Dr/Ec) 81 mg PO QPM RF: 0 Referrals Referrals: Brendon Powers DO [Primary Care Provider] -
--- NOTE | 2021-10-09 19:31 | XRay Report ---
XR chest 1V portable HISTORY: Atypical Chest Pain COMPARISON: Chest 11/08/2018. FINDINGS: There are low lung volumes. The cardiac silhouette is top normal in size. No pleural effusi on. No pneumothorax. No focal lung consolidations to suggest pneumonia. No evidence for pulmonary janna ma. Slightly rotated study. IMPRESSION: No acute process. ACT 112: Negative or not required by law. Electronically signed by: Jose Martin Ray M.D. 10/09/2021 7:30 PM
[2021-10-09 19:45] LABS: Basophils # (auto) 0.04 K/uL (0-0.2); Basophils % (auto) 0.5 %; Eosinophils # (auto) 0.15 K/uL (0-0.5); Hematocrit (blood only) 41.9 % (42-52); Immature Granulocytes # (auto) 0.02 K/uL (0.00-0.02); Immature Granulocytes % (auto) 0.3 %; Lymphocytes # (auto) 1.68 K/uL (1.2-3.4); Lymphocytes % (auto) 22.7 %; Mean Corpuscular Hemoglobin 31.2 pg (25-34); Mean Corpuscular Hgb Conc 33.4 g/dL (32-36); Mean Corpuscular Volume 93.3 fL (80-100); Mean Platelet Volume 9.5 fL (7.4-10.4); Monocytes # (auto) 0.56 K/uL (0.11-0.59); Monocytes % (auto) 7.6 %; Neutrophils # (auto) 4.95 K/uL (1.4-6.5); Neutrophils % (auto) 66.9 %; Platelet Count 158 K/uL (130-400); RDW Coefficient of Variation 13.2 % (11.5-14.5); RDW Standard Deviation 44.9 fL (36.4-46.3); Red Blood Count 4.49 M/uL (4.7-6.1)
[2021-10-09 19:56] LABS: Partial Thromboplastin Time 25.6 Seconds (21.0-31.0)
[2021-10-09 20:06] LABS: Alanine Aminotransferase 38 U/L (7-52); Albumin Globulin Ratio 1.8 (0.9-2); Albumin Level 4.3 gm/dl (3.4-5.0); Alkaline Phosphatase 58 U/L (34-104); Anion Gap 6 (3-11); Aspartate Aminotransferase 21 U/L (13-39); BUN Creatinine Ratio 23.4 (10-20); Bilirubin,Total 0.8 mg/dl (0.2-1.0); Blood Urea Nitrogen 26 mg/dl (6-23); Calcium 8.5 mg/dl (8.5-10.1); Carbon Dioxide 25 mmol/L (21-32); Chloride 108 mmol/L (98-107); Est GFR (African American) 75.9 ml/min; Est GFR (Non-African American) 65.5 ml/min; Globulin 2.4 gm/dl (2.5-4.0); Glucose 156 mg/dl (70-99(Fasting)); Magnesium 1.9 mg/dl (1.7-2.4); Potassium 4.2 mmol/L (3.5-5.1); Sodium 139 mmol/L (136-145); Total Protein 6.7 gm/dl (6.0-8.3)
[2021-10-09 20:08] LABS: Troponin I < 0.03 ng/ml (0-0.04)
[2021-10-09] MEDS ORDERED: ONDANSETRON INJ 2 MG/ML 2 ML VIAL IV PRN (22:18)
[2021-10-09] MEDS ORDERED: ACETAMINOPHEN 325 MG TAB PO PRN (22:18)
--- NOTE | 2021-10-09 22:56 | History & Physical Report ---
Date of Service October 09, 2021 Assessment & Plan (1) Chest pain: Plan: This is a 75-year-old gentleman with a known history of coronary artery disease status post complex PCI with POBA to RCA in 2016, prior UT in 1989, hypertension, type 2 diabetes, hyperlipidemia, status post carotid endarterectomy who presents to [facility] at the request of Dr. Houser for cardiac catheterization in the setting of two nights' worth of substernal chest pain. He is asymptomatic without a detectable troponin or notable ECG changes on arrival. Concern for ACS h/o CAD/prior UT with complex PCI with POBA to RCA in 2017 Patient with complex coronary artery disease history, as noted above; given recurrence of ACS-like chest pain, will admit for planned catheterization in the a.m. with Dr. Houser On arrival: Asymptomatic. Troponin undetectable. VSS. No overt signs of acute CHF. Consult cardiology: Dr. Houser for repeat cath in a.m., previously planned Consider initiation of low-dose heparin drip if symptoms recur Continue aspirin, statin, hypertensive medications Repeat TTE ordered for the a.m. after cath Per outpatient note by Dr. Houser: If severe, recurrent RCA disease, will need to consider transfer to tertiary care center for atherectomy N.p.o. at midnight Hypertension Continue metoprolol, lisinopril, Imdur -- confirmed that patient is on lisinopril, had prior history of cough. Type 2 diabetes Last A1c at 6.4% in 04/2020; will redraw while here. Noted to be diet controlled. Plan on ACHS glucose checks for 1 day; if sugars persistently elevated above 140, would consider adding SSI Sinus Bradycardia Chronic, stable, asymptomatic. Chronically on metoprolol. Monitor. History of: Asthma, HLD, hepatic steatosis, GERD, anxiety - reviewed, noted. Code: Full code Dispo: MedSurg with telemetry Diet: N.p.o. at midnight, thereafter heart healthy/CC Prophylaxis: Hep SQ Attending addendum: I have physically seen this patient, have supervised the medical residents activities, and agree with the H&P unless as otherwise noted. Assessment and Plan: Unstable angina/ACS/hypertension/CAD/history of previous UT with complex PCI with POBA to RCA- The patient will be admitted to telemetry for serial cardiac enzymes, serial EKG's, cardiac rhythm monitoring and a 2-D echocardiogram with Dopplers. Request for interventional cardiology Dr. Houser for patient be admitted to the hospital for cardiac catheterization in the a.m. Heparin drip low-dose with bolus per protocol Continue aspirin, atorvastatin, isosorbide mononitrate, lisinopril and metoprolol succinate Check a fasting lipid panel hemoglobin A1c Remaining orders and notations as noted (2) Hypertension: (3) Anxiety: (4) Diabetes mellitus with neuropathy: (5) Coronary artery disease: (6) Gastroesophageal reflux disease: (7) Hepatic steatosis: (8) Peripheral vascular disease: (9) Prediabetes: (10) Sinus bradycardia: History of Present Illness Primary Care Provider: Brendon Powers, This is a 75-year-old gentleman with a known history of coronary artery disease status post complex PCI with POBA to RCA in 2016, prior UT in 1989, hypertension, type 2 diabetes, hyperlipidemia, status post carotid endarterectomy who presents to [facility] at the request of Dr. Houser for cardiac work-up. 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 He also said this happened while on a hunting trip during the day approx. 2 months ago , for which he took one of his nitroglycerin with some relief. Today, he reports no pain.He is breathing comfortably and denies n/v/d. As a result of his complex history and recurrence of symptoms, Dr. Houser did recommend admission for cardiac catheterization tomorrow. Of note, review of Dr. Houser notes reveals that patient was admitted in 07/2017 for exertionally related chest pain; work-up at that timewhich included PCIdemonstrated moderate disease in the LAD, severe disease in his circumflex, and severe disease in his proximal dominant large RCAPCI with POBA to RCA was performed. In the ED, patient was found to be mildly bradycardic (chronic) but with otherwise normal VS. His labs were unremarkable. Troponin was negative. ECG was without acute conduction or repolarization abnormalities. Allergies Allergy/AdvReac Type Severity Reaction Status Date / Time Sulfa (Sulfonamide Allergy Mild Rash Verified 10/09/21 10:31 Antibiotics) lisinopril Allergy Unknown COUGH Verified 10/09/21 10:31 niacin Allergy Unknown Verified 10/09/21 10:31 olmesartan [From Benicar] Allergy Unknown Verified 10/09/21 10:31 Home Medications Medication Instructions Recorded Confirmed Type aspirin 81 mg tablet,delayed 81 mg PO QPM 09/30/18 10/09/21 History release atorvastatin 80 mg tablet 80 mg PO PM 09/30/18 10/09/21 History metoprolol succinate 50 mg 50 mg PO QAM 09/30/18 10/09/21 History tablet,extended release 24 hr cholecalciferol (vitamin D3) 25 1,000 units PO DAILY 07/03/19 10/09/21 History mcg (1,000 unit) capsule cyanocobalamin (vitamin B-12) 1,000 mcg PO DAILY 07/03/19 10/09/21 History 1,000 mcg capsule flaxseed oil 1,000 mg capsule 1,000 mg PO DAILY 07/03/19 10/09/21 History lorazepam 1 mg tablet 1 mg PO DAILY PRN 05/06/20 10/09/21 History ascorbic acid (vitamin C) 500 mg 500 mg PO DAILY cap 10/09/21 10/09/21 History capsule nitroglycerin 0.4 mg sublingual 0.4 mg SL Q5M PRN #30 tab 10/09/21 10/09/21 Rx tablet isosorbide mononitrate 60 mg 60 mg PO DAILY 30 Days #30 tab 10/10/21 Rx tablet,extended release 24 hr lisinopril 20 mg tablet 20 mg PO DAILY 30 Days #30 tab 10/10/21 Rx Past Med/Surg History Medical History BPH (benign prostatic hyperplasia) Chest pain (10/26/13) Coronary artery disease Dyslipidemia Former smoker Gastroesophageal reflux disease Hearing deficit BL ACU[place]A Hepatic steatosis Hyperlipidemia Hypertension Inguinal hernia Left inguinal hernia Lichen planus Multiple pulmonary nodules Myocardial Infarction 1995 Osteoarthritis Past myocardial infarction Peripheral vascular disease Post traumatic stress disorder Prediabetes Pulmonary emphysema Schatzki's ring Sinus bradycardia Surgical History History of bowel resection History of cardiac cath - [facility] - SOB - ANGIOPLASTY (NO STENTS) - FOLLOWS W/ DR. HOUSER 1995 - [facility] - [place] - NO STENTS/ANGIOPLASTY History of carotid endarterectomy LEFT. 2009 History of cataract surgery Bilateral. left 2019. Dr Hilton History of cholecystectomy History of colonoscopy History of esophagogastroduodenoscopy (EGD) Hx of cholecystectomy S/P small bowel resection Family History Brother Carotid artery stenosis Heart disease Hypertension Rheumatoid arthritis Sister Heart disease Diabetes Father Coronary heart disease Myocardial infarction Brother Rheumatoid arthritis Denies family history of Ovarian cancer Prostate cancer Breast cancer Lung cancer Colorectal cancer Stroke Social History Smoking Status: Never smoker Tobacco Type: Cigars Cigarettes Per Day: 20; Second Hand Exposure: No; Hx Alcohol Use: No Hx Substance Use: No Preferred Language: German Communication Ability: Effective Visual Impairment: Limited Hearing Ability: Use of Hearing Aid Acute Care Physical Therapist Required: No Beliefs That Will Affect Care: None marital status: Current Living Situation: Spouse current occupational status: retired How many Children do You have: 2 Feels Safe at Home: Yes Childhood Exposure to Second-Hand Smoke: No caffeine: Yes Dental Care, Regularly: Yes Physical Activity Frequency: 3-4 Times per Week Seatbelt Use: always Sunscreen Use: Yes Assistive Devices: None Review of Systems Review of Systems: as per HPI Physical Exam Physical Exam: General: Well-appearing 75-year-old male in no acute distress HEENT: MMM. No JVD. Trachea midline Cardiac: Low-normal rate, regular rhythm, S1 and S2 are present with grade 1/6 AIMEE best heard at RUSB Pulmonary: Good respiratory effort with symmetric expansion of the chest, lungs are clear to auscultation bilaterally without crackles or wheezes Abdominal: Abdomen soft, nontender, and nondistended to palpation Extremities: No peripheral edema appreciated bilaterally Results & Data Results & Data ([facility]) Vital Signs (Past 12 Hours) Vital Signs Temp Pulse Resp BP Pulse Ox 10/09/21 20:20 47 L 26 H 97 10/09/21 20:10 48 L 18 97 10/09/21 20:00 49 L 16 134/77 97 10/09/21 19:50 49 L 15 98 10/09/21 19:44 47 L 19 97 10/09/21 18:34 36.6 C 55 L 20 176/98 H 98 Supervising Physician Co-Signing Physician Notes By CMS guidelines, a determination that the admission or continued stay is not medically necessary has been made by a member of the UR committee and a physician for this hospital stay, therefore a Code 44 will be completed and the Inpatient admission will be changed to outpatient. Resident Activity Tracking Resident Involvement: Resident Care Provided Care Provided: Adult Hospital Medicine (1) Chest pain Chest pain type: chest pain due to myocardial ischemia Ischemic chest pain type: unspecified angina pectoris type Qualified Code(s): I25.9 - Chronic ischemic heart disease, unspecified (2) Hypertension Hypertension type: primary hypertension Qualified Code(s): I10 - Essential (primary) hypertension
[2021-10-10] MEDS ORDERED: NITROGLYCERIN SL 0.4 MG/TAB TAB SL PRN (01:22)
[2021-10-10] MEDS ORDERED: LORazepam 1 MG TAB PO PRN (01:37)
[2021-10-10] MEDS ORDERED: LACTATED RINGER'S 1,000 ML IV SCH (01:45)
[2021-10-10 06:30] LABS: BUN Creatinine Ratio 22.7 (10-20); Calcium 8.5 mg/dl (8.5-10.1); Chol HDL Ratio 3.1 (0-5); Creatinine Clr Calc Pharmacy 75.5 ml/min; Est GFR (African American) 89.4 ml/min; Est GFR (Non-African American) 77.1 ml/min; Potassium 4.8 mmol/L (3.5-5.1)
[2021-10-10 07:24] LABS: Estimated Average Glucose 131 mg/dl; Hemoglobin A1C 6.2 % (4.5-5.6)
[2021-10-10] MEDS ORDERED: METOPROLOL SUCC 50MG EXT REL TAB PO SCH (09:00)
[2021-10-10] MEDS ORDERED: HEPARIN SOD 5,000 UNIT/0.5 ML VIAL SQ SCH (09:00)
[2021-10-10] MEDS ORDERED: lisinopril 10 MG TAB PO SCH (09:00)
[2021-10-10] MEDS ORDERED: ASCORBIC ACID 500 MG TAB PO SCH (09:00)
[2021-10-10] MEDS ORDERED: NON-FORMULARY MEDICATION (Flaxseed Oil 1,000 mg capsule) PO SCH (09:00)
[2021-10-10] MEDS ORDERED: CYANOCOBALAMIN 500 MCG TABLET (VITAMIN B-12) PO SCH (09:00)
[2021-10-10] MEDS ORDERED: CHOLECALCIFEROL 1,000 UNITS 25 MCG TAB PO SCH (09:00)
[2021-10-10] MEDS ORDERED: ISOSORBIDE MONO EXTENDED REL 30 MG TABCR PO SCH (09:00)
[2021-10-10] MEDS ORDERED: HEPARIN (PORCINE) 1000 UNIT/ML 10 ML (CATH LAB USE ONLY) ONE (11:34)
[2021-10-10] MEDS ORDERED: niCARdipine HCL INJ 2.5 MG/ML 10 ML AMP ONE (11:35)
[2021-10-10] MEDS ORDERED: NITROGLYCERIN/D5W 100MCG/ML 20ML SYR ONE (11:35)
[2021-10-10] MEDS ORDERED: fentaNYL citrate 100 MCG/2 ML VIAL ONE ×2 (11:35→13:00)
[2021-10-10] MEDS ORDERED: MIDAZOLAM HCL 1 MG/ML 2ML VIAL ONE ×2 (11:35→12:41)
[2021-10-10] MEDS ORDERED: LIDOCAINE 1% LOCAL 20 ML VIAL ONE (11:37)
--- NOTE | 2021-10-10 12:33 | Hospitalist Progress Note ---
Date of Service October 10, 2021 Assessment & Plan (1) CAD (coronary atherosclerotic disease): Plan: * CAD with unstable angina; H/O CAD/prior [place] with complex PCI with POBA to RCA in 2017 - Was having night time chest pain prompting ED visit - Currently chest pain free and awaiting cardiac catheterization this afternoon with Dr. Monroe - Echo ordered - Continue ASA 81 mg daily; Imdur 30 mg daily; Lisinopril 10 mg daily; Toprol XL 50 mg daily - Atorvastatin 80 mg daily - Cardiology following - appreciate input -- Per outpatient note - if severe recurrent RCA disease will need consideration for transfer to tertiary care center (2) Hypertension: Plan: - Treatment as above (3) Type 2 diabetes mellitus: Plan: - A1c 6.2 - Maintain dietary management Plan: - Of note patient has Sildenafil on med list - do not see a recent Rx in external pharmacy - patient is on Imdur with NTG PRN. Would be worth reminding patient of interaction Await cardiac catherization. Plan dependent on findings. Suspect overnight stay and possible D/C tomorrow unless need for tertiary care center. Admission and Anticipated Discharge Date Admission Date: October 09, 2021 Subjective Pt report having some CP last night that made his L arm feel funny and his BP jumped up but quickly resolved. Currently chest pain free. Anticipating cardiac cath this afternoon. Verbalizes no new complaints Review of Systems Review of Systems: All systems reviewed & are unremarkable except as noted in Subjective Physical Exam Physical Exam: PHYSICAL EXAM General Appearance: WDWN in NAD who is A&O x 3 HEENT: Head is normocephalic/atraumatic; Hearing grossly intact; Mucous membranes moist Neck: Supple; Trachea midline; Neg JVD Heart: RRR with no M/G/R Lungs: CTA in all lung henderson bilaterally; Respirations unlabored; Neg accessory muscle use Abdomen: Soft, non-tender, non-distended; Positive BS x 4 quadrants Extremities: Neg cyanosis or edema Neurological: Speech clear; Gross motor/sensory function intact; Neg focal neurologic deficits Psychiatric: Appropriate mood/affect Skin: Normal Color; Warm/Dry Results & Data Results & [facility] ([facility]) Vital Signs (Past 12 Hours) Vital Signs Temp Pulse Pulse Resp BP BP Pulse Ox 10/10/21 11:21 37 C 48 L 18 144/59 H 97 10/10/21 08:00 36.9 C 55 L 18 167/74 H 95 10/10/21 03:31 45 L 16 186/70 H 98 10/10/21 03:00 45 L 20 159/65 H 98 10/10/21 02:30 45 L 16 159/63 H 96 10/10/21 02:00 159/65 H 10/10/21 01:30 145/66 H 10/10/21 01:00 168/73 H PG Care Time/CCT Total # of Minutes Spent Total Time Spent with Patient: Total time spent is greater than 50% in coordination of care (as documented) at patient's floor/unit and/or counseling patient: Coding Level of Care Code 00713 Subseq Hosp Care Lvl 3 Diagnoses CAD (coronary atherosclerotic disease) I25.10 Hypertension I10 Hypertension type: primary hypertension Type 2 diabetes mellitus E11.9 (1) Hypertension Hypertension type: primary hypertension Qualified Code(s): I10 - Essential (primary) hypertension
[2021-10-10] MEDS ORDERED: hydrALAZINE HCL 20 MG/ML VIAL ONE (13:02)
--- NOTE | 2021-10-10 14:02 | Electrocardiogram Report ---
Test Reason : Blood Pressure : / mmHG Vent. Rate : 050 BPM Atrial Rate : 050 BPM P-R Int : 130 ms QRS Dur : 088 ms QT Int : 428 ms P-R-T Axes : 023 040 025 degrees QTc Int : 390 ms Sinus bradycardia with Premature atrial complexes Otherwise normal ECG When compared with ECG of 03-AUG-2017 06:46, Premature atrial complexes are now Present Confirmed by Jose Roberto Jung ([id number]) on 10/10/2021 2:02:07 PM Referred By: Ozzy Monroe Confirmed By:Jose Roberto Jung
--- NOTE | 2021-10-10 14:07 | Electrocardiogram Report ---
Test Reason : Blood Pressure : / mmHG Vent. Rate : 056 BPM Atrial Rate : 056 BPM P-R Int : 188 ms QRS Dur : 084 ms QT Int : 422 ms P-R-T Axes : 053 009 -01 degrees QTc Int : 407 ms Sinus bradycardia Nonspecific T wave abnormality Abnormal ECG When compared with ECG of 09-OCT-2021 18:45, (unconfirmed) Premature atrial complexes are no longer Present Confirmed by Jose Roberto Jung ([id number]) on 10/10/2021 2:07:36 PM Referred By: Ozzy Monroe Confirmed By:Jose Roberto Jung
--- NOTE | 2021-10-10 14:46 | XCELERA ---
[id number]
--- NOTE | 2021-10-10 17:10 | Communication Note ---
Date of Service: October 10, 2021 By CMS guidelines, a determination that the admission or continued stay is not medically necessary has been made by a member of the UR committee and a ph ysician for this hospital stay, therefore a Code 44 will be completed and the Inpatient admission will be changed to outpatient.
--- NOTE | 2021-10-10 17:19 | Discharge Summary ---
Date of Service October 10, 2021 Admission HPI Per Admitting Provider This is a 75-year-old gentleman with a known history of coronary artery disease status post complex PCI with POBA to RCA in 2016, prior [place] in 1989, hypertension, type 2 diabetes, hyperlipidemia, status post carotid en darterectomy who presents to [facility] at the request of Dr. Monroe for cardiac work-up. Patient presented to ct scan special procedures technologist office complaining of substernal chest pain with radiation to shoulders and jaw that had occurred over the last two nights. He also said this happened while on a hunting trip during the day approx. 2 months ago , for which he took one of his nitroglycerin with some relief. Today, he reports no pain.He is breathing comfortably and denies n/v/d. As a result of his complex history and recurrence of symptoms, Dr. Monroe did recommend admission for cardiac catheterization tomorrow. Of note, review of Dr. Monroe notes reveals that patient was admitted in 07/2017 for exertionally related chest pain; work-up at that timewhich included PCIdemonstrated moderate disease in the LAD, severe disease in his circumflex, and severe disease in his proximal dominant large RCAPCI with POBA to RCA was performed. In the ED, patient was found to be mildly bradycardic (chronic) but with otherwise normal VS. His labs were unremarkable. Troponin was negative. ECG was without acute conduction or repolarization abnormalities. Principal Diagnosis CAD with Angina Discharge Exam PHYSICAL EXAM General Appearance: WDWN in NAD who is A&O x 3 HEENT: Head is normocephalic/atraumatic; Hearing grossly intact; Mucous membranes moist Neck: Supple; Trachea midline; Neg JVD Heart: RRR with no M/G/R Lungs: CTA in all lung henderson bilaterally; Respirations unlabored; Neg accessory muscle use Abdomen: Soft, non-tender, non-distended; Positive BS x 4 quadrants Extremities: Neg cyanosis or edema Neurological: Speech clear; Gross motor/sensory function intact; Neg focal ne urologic deficits Psychiatric: Appropriate mood/affect Skin: Normal Color; Warm/Dry Discharge Data Allergies Allergy/AdvReac Type Severity Reaction Status Date / Time Sulfa (Sulfonamide Allergy Mild Rash Verified 10/09/21 10:31 Antibiotics) lisinopril Allergy Unknown COUGH Verified 10/09/21 10:31 niacin Allergy Unknown Verified 10/09/21 10:31 olmesartan [From Benicar] Allergy Unknown Verified 10/09/21 10:31 Consultations 10/09/21 19:34 ED Decision to Admit Stat 10/09/21 22:18 Consult Cardiology Routine Procedures Performed Operation Date: 10/10/21 11:00 Actual Procedures p Cath, Left with Cors and Vent - Ozzy Monroe MD s Cineradiography w/Routine Exam - Ozzy Monroe MD Ordered Studies Chest X-Ray 10/09/21 18:38 XR chest 1V portable HISTORY: Atypical Chest Pain COMPARISON: Chest 11/08/2018. FINDINGS: There are low lung volumes. The cardiac silhouette is top normal in size. No pleural effusion. No pneumothorax. No focal lung consolidations to suggest pneumonia. No evidence for pulmonary edema. Slightly rotated study. IMPRESSION: No acute process. ACT 112: Negative or not required by law. Electronically signed by: Jose Martin Ray M.D. 10/09/2021 7:30 PM Hospital Course (1) CAD (coronary atherosclerotic disease): * CAD with unstable angina; H/O CAD/prior [place] with complex PCI with POBA to RCA in 2017 - Was having night time chest pain prompting ED visit - Currently chest pain free - Cardiac cath on 10/10 - multi-vessel disease but able to do outpatient CABG evaluation - Echo - EF 60-65%; mild LVH; no regional wall motion abnormalities - Continue ASA 81 mg daily; Imdur increased from 30 mg to 60 mg daily; Lisinopril increased from 10 mg to 20 mg daily; Toprol XL 50 mg daily - Atorvastatin 80 mg daily - Cardiology followed - plan on outpatient F/U (2) Hypertension: - Treatment as above (3) Type 2 diabetes mellitus: - A1c 6.2 - Maintain dietary management - Of note patient has Sildenafil on med list - do not see a recent Rx in external pharmacy - patient is on Imdur with NTG PRN. Gave written instructions to not use these medications together Patient was able to discharge home with outpatient cardiac F/U Total Time Total Time Spent Total Time Spent (In Minutes): Spent greater than 30 minutes preparing patient for discharge. This includes discussion with patient/family, assessment, intervention, medication reconciliation, and coordination of care. Discharge Plan Discharge Items Patient Disposition: Home - Self-Care Reason For Visit: PERCUTANEOUS CORONARY INTERVENTION, R/O ACS Discharge Diagnosis: Coronary Artery Disease with Need for Bypass Condition on Discharge: Good Activity: Per Instructions section Non-emergency contact: Primary Care Provider and Signal Operator Linguist Call non-emergency contact if: you have any medication questions, your symptoms worsen and you have a fever Follow-up/Referrals: Brendon Powers, [Primary Care Provider] - Diet: Heart Healthy Addtl Attending Provider Instructions: CAD (coronary atherosclerotic disease): - You were admitted to further evaluate your heart blood vessels. - You had a heart catheterization and will require further intervention on these blood vessels which will be arranged as an outpatient. - Dr. Monroe would like to increase your Imdur to 60 mg daily and your Lisinopril up to 20 mg daily which prescriptions were sent for these doses - Please follow-up with Dr. Monroe and follow instructions given by Dr. Monroe - Of note the medication Sildenafil (Viagra) was on your medication list here but do not see this is a medication do not see a recent prescription in your pharmacy report here. Be mindful that this medication and nitroglycerin based medications can interact causing very low blood pressure. Please discuss this with your doctor before using these two medications. If you no longer use Sildenafil (Viagra), disregard. Addtl Corporate Bond Trader Provider Instructions: ACTIVITY RECOMMENDATIONS: Excess manipulation of the wrist should be avoided for the next 24-48 hours. * No lifting over 2 pounds (approximately a 1/2 gallon of milk) with the utilized arm for 24 hours. * No strenuous activity such as bowling or tennis for 3 days. * Keep the site of the procedure covered with a bandage for 24 hours. *You may shower the day after the procedure. Do not take a tub bath or submerge the puncture site in water for the next 3 days. *Do not operate any motorized equipment for 3 days. SPECIAL CARE INSTRUCTIONS: The site may be slightly bruised and sore following your procedure. Should any of the following occur, contact the DrButch who performed your procedure. 1. Redness/inflammation, swelling, chills, or fever, or colored drainage at procedure site within 3-7 days after your procedure. 2. Coldness, discoloration, ongoing numbness, severe pain, or swelling. Expect mild tingling of hand and tenderness at the puncture site for up to three days. If this persists beyond three days, or other symptoms develop, notify the Dr. who performed your procedure. BLEEDING: If the procedure site on your wrist begins to bleed, do not panic 1. Place 1 or 2 fingers firmly just slightly above the insertion site to stop the bleeding. You may be able to feel your pulse as you hold pressure. 2. Lift your finger after 5 minutes to see if the bleeding has stopped. 3. Once the bleeding has stopped, gently wipe the wrist area clean with a bandage. * If the bleeding from your wrist does not stop after 10 minutes, or if there is a large amount of bleeding or spurting, call 911 (do not drive yourself to the hospital). SKIN IRRITATION: * You may experience some redness and/or swelling in the area where radiation was administered. If any skin irritation occurs, please contact your family physician. FOLLOW UP VISIT: Keep any scheduled doctor appointments. Pending Studies at Discharge: No Stand-Alone Forms: [facility], Smoking Cessation Medications and DC Order Prescriptions: Continued lorazepam 1 mg tablet 1 mg PO DAILY PRN (Reason: Anxiety) RF: 0 ascorbic acid (vitamin C) 500 mg capsule 500 mg PO DAILY RF: 0 cyanocobalamin (vitamin B-12) 1,000 mcg capsule 1,000 mcg PO DAILY RF: 0 cholecalciferol (vitamin D3) 1,000 unit capsule 1,000 units PO DAILY RF: 0 flaxseed oil 1,000 mg capsule 1,000 mg PO DAILY RF: 0 metoprolol succinate 50 mg Tablet Extended Release 24 Hr 50 mg PO QAM RF: 0 atorvastatin 80 mg Tablet 80 mg PO PM RF: 0 aspirin 81 mg Tablet,Delayed Release (Dr/Ec) 81 mg PO QPM RF: 0 Discontinued sildenafil 50 mg tablet 50 mg PO DAILY PRN (Reason: sexual activity) Qty: 7 RF: 0 isosorbide mononitrate 30 mg tablet extended release 24 hr 30 mg PO DAILY Qty: 30 RF: 0 lisinopril 10 mg tablet 10 mg PO DAILY Qty: 30 RF: 6 No Action lisinopril 10 mg tablet 10 mg PO DAILY 30 Days Qty: 30 RF: 6 amlodipine 5 mg tablet 5 mg PO DAILY Qty: 30 RF: 2 isosorbide mononitrate 60 mg tablet extended release 24 hr 60 mg PO BID 30 Days Qty: 60 RF: 6 nitroglycerin 0.4 mg tablet, sublingual 0.4 mg SL Q5M PRN (Reason: chest pain) Qty: 30 RF: 3 Discharge Orders: Discharge Order (Routine); Ordered 10/10/21 Ordered By: Richelle Darnell/Other Patient Handouts: Managing Type 2 Diabetes, 5 Steps for Eating Healthier Admission Data Admit Date/Time: 10/09/21 22:19 Attending Provider: Dutch Anthony Admit Provider: Carter Rojas Primary Care Provider: Brendon Powers Other Providers: Ok Flores ; Ozzy Monroe Other Interventions: Discharge Summary Assessment (RN) Last Done: 10/10/21 17:39 Supervising Physician Co-Signing Physician Notes Attending note: patient seen and examined with Richelle Bradley PA-C. I agree with her discharge summary. I personally reviewed the labs and imaging findings. Patient seen and examined after his left heart cath. discussed with Dr. Monroe, appreciate his recommendations explained to patient he would be discharged after TR band protocol completed he denies chest pain, dyspnea, fever/chills, nausea - CAD: triple vessel disease, cardiology recommends outpatient referral for CABG continue aspirin 81mg daily, increase Imdur and Lisinopril, continue Toprol Coding Level of Care Code 42242 OBS Care - Discharge Diagnoses CAD (coronary atherosclerotic disease) I25.10 Hypertension I10 Hypertension type: primary hypertension Type 2 diabetes mellitus E11.9
--- NOTE | 2021-10-10 18:13 | Post Operative Brief Note ---
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 Moderate ostial disease, mid segment disease. 70% ostial LAD. 60% focal mid at takeoff of septal. Distal vessel without disease. Recommendations: Outpatient CABG evaluation, intensify antianginal therapy. Anesthesia Type RN Sedation Complications none Disposition Accompanied Patient To Recovery: Yes Disposition: Recovery Room Overlapping Procedure I was present for: the critical portions of procedure. I was immediately available: during the entire case. Back up surgeon: was not required during procedure.
[2021-10-10] MEDS ORDERED: ASPIRIN 81 MG ECTAB PO SCH (21:00)
[2021-10-10] MEDS ORDERED: ATORVASTATIN 40 MG TAB PO SCH (21:00)
--- NOTE | 2021-10-11 01:40 | Billing Data ---
Date of Service October 11, 2021 Coding Level of Care Code INT OBSERVATION CARE 70M LVL 3
--- NOTE | 2021-10-12 08:02 | Cardiac Catheterization ---
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 Cardiac Status Clinical evaluation leading to the procedure CAD Presenation: Unstable angina Anginal Classification: CCS III Heart Failure: No Cardiogenic Shock within 24 Hours: No Cardiac Arrest within 24 Hours: No Imaging Studies Past 6 Months: Yes Stress Studies Past 6 Months: No Diagnostic Physicians Name: Erik Monroe MD Closure Device Recommendations: CABG Intraprocedure Events Significant Disection: No Perforation: No Cardiac Cath Procedure Full Procedure Date October 12, 2021 Pre-Procedure Diagnosis Pre-Procedure Diagnosis: Angina AUC Score AUC Score: 7 Post-Procedure Diagnosis Post-Procedure Diagnosis: Severe CAD and Elevated Intracardiac Pressures Procedure(s) Performed Procedure(s) Performed: Coronary Angiography and Left Heart Cath Shop Estimator Erik Monroe MD Roll Winder(s) Rumper Estimated Blood Loss Estimated Blood Loss: None Medication(s) Medication(s): Fentanyl, Heparin, Lidocaine 1%, Nicardipine, Nitroglycerin and Versed Summary of Findings Indication: Accelerating angina Access: 6Fr right radial artery Catheters: [place], MPA, JL3.5, AL1 Findings: LAD - Moderate caliber vessel, 70% ostial stenosis (seen best on cranial views), long proximal segment, 50-60% mid segment disease after take-off of 2nd septal, distal vessel tapers prior to apex. 1st Diagonal with mild to moderate disease. 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 Appears to have at least 70% ostial disease with 50% mid segment disease and moderate to severe disease in small OMs. RCA - Dominant, heavily calcified, 95% ostial stenosis, 60% proximal stenosis, diffuse mid segment disease up to 90%. R-PDA medium caliber with moderate distal disease. LVEDP - 19 Arterial Closure: TR Band Summary: 1. 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 Elevated intracardiac filling pressure Recommendations: Referral to tertiary center for consideration of CABG. Intensify antianginal therapy, blood pressure medicines in interim. Hemodynamics Rest Ao:: 147/49 Final Ao: 204/73/125 LV: 201/19 Recommendations Recommendations: CABG Specimens Specimens: None Radiation Exposure (mGy) 2733 Contrast (mls) 110 Fluids (cc crystalloids) Fluids (cc crystalloids): 150 Drains Drains: none Anesthesia moderate 4729-4721 Procedural Complication(s) None Disposition PCU I attest to the content of the Intraoperative Record and any orders documented therein. Any exceptions are noted below. [facility] Card Cath Procedure Codes Cardiac Catheterization Procedure 1: Cardiovascular Cath Procedures: 13484 Coronaries and LHC (+/-LV) Moderate Sedation Procedure 1: Sedation/Anesthesia: 46399 Mod Sedation by the same physician;Init15 Min Child Age 5 & Up Procedure 2: Sedation/Anesthesia: 95981 Mod Sedation by the same physician; Ea [id number] Minutes PG Care Time/CCT Total # of Minutes Spent Total Time Spent with Patient: Total time spent is greater than 50% in coordination of care (as documented) at patient's floor/unit and/or counseling patient:
--- NOTE | 2021-10-12 08:14 | Cardiology Consultation ---
Date of Consultation October 12, 2021 Assessment & Plan (1) CAD (coronary atherosclerotic disease): --post POBA to proximal RCA 2017, unable to stent due to severe calcification --now with severe RCA and LAD ostial disease. 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 Type 2 diabetes--on oral therapy 3. Hypertension 4. Dyslipidemia 5. 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 Valderrama Patient with complex multivessel disease, diabetes and recommend referral for CABG. We talked about options in terms of timing of surgery and location. Patient and family wish to do as an out patient if possible which I think is reasonable. They leslie discuss further about what cardiac surgery location would be easiest for family and will follow-up by phone on Wednesday. In interim will double imdur. Continue current toprol XL with relative bradycardia. Previously did not tolerate calcium channel blockers. With elevated BPs will increase lisinopril to 20mg daily. From a cardiac standpoint OK with discharge today. Instructed that if has recurrent persistent pain should return to ED. History of Present Illness Attending Physician: Dutch Anthony, History of Present Illness Mr. Dugan is a very pleasant 75-year-old man with a history of coronary artery disease status post prior PR in the and complex PCI with POBA to RCA 2016, hypertension, diet-controlled diabetes, hyperlipidemia, peripheral vascular disease status post carotid endarterectomy here routine scheduled follow-up. Patient was admitted to [facility] in July of 2017 in the setting of accelerating substernal chest tightness radiating to his arms bilaterally as well as to his back and into his jaw. Symptoms primarily exertional, occurring prior to admission with just walking across the room. Cardiac enzymes were negative but due to patient's prior cardiac history and typical symptoms he underwent cardiac catheterization which showed moderate disease in his mid LAD, severe disease in a small anomalous circumflex and severe 99% disease his proximal dominant large RCA. PCI was attempted with eventual POBA to his proximal RCA segment but unable to pass any equipment more distally. He was transferred to [facility] for consideration of PCI with atherectomy. He was evaluated by interventional Cardiology and decision was made to manage medically. Patient did well on medical management with 2 antianginal agents. Was unable to tolerate amlodipine because "made him feel like a zombie." Presented to my office on 10/09 for an acute visit due to recurrent substernal chest tightness radiating to his shoulders/arms and jaw. Pain reminiscent of what he had prior to previous PCI. Reports worsened exertional symptoms most notably in August when was out hunting. This week has had 2 episodes at night occurring at rest. Episodes associated with diaphoresis and woke him from sleep. Minimal relief with sublingual nitroglycerin. Referred to ED where chest pain free, ECG unchanged and troponin negative. On 10/10 underwent repeat cath showing severe multivessel disease with significant progression in ostial RCA disease and now ostial LAD disease. Repeat Echo showed LVEF 60-65%, no wall motion abnormalities, mild MR and aortic valve sclerosis. Normal IVC. Allergies Allergy/AdvReac Type Severity Reaction Status Date / Time Sulfa (Sulfonamide Allergy Mild Rash Verified 10/09/21 10:31 Antibiotics) lisinopril Allergy Unknown COUGH Verified 10/09/21 10:31 niacin Allergy Unknown Verified 10/09/21 10:31 olmesartan [From Benicar] Allergy Unknown Verified 10/09/21 10:31 Home Medications Medication Instructions Recorded Confirmed Type aspirin 81 mg tablet,delayed 81 mg PO QPM 09/30/18 10/09/21 History release atorvastatin 80 mg tablet 80 mg PO PM 09/30/18 10/09/21 History metoprolol succinate 50 mg 50 mg PO QAM 09/30/18 10/09/21 History tablet,extended release 24 hr cholecalciferol (vitamin D3) 25 1,000 units PO DAILY 07/03/19 10/09/21 History mcg (1,000 unit) capsule cyanocobalamin (vitamin B-12) 1,000 mcg PO DAILY 07/03/19 10/09/21 History 1,000 mcg capsule flaxseed oil 1,000 mg capsule 1,000 mg PO DAILY 07/03/19 10/09/21 History lorazepam 1 mg tablet 1 mg PO DAILY PRN 05/06/20 10/09/21 History ascorbic acid (vitamin C) 500 mg 500 mg PO DAILY cap 10/09/21 10/09/21 History capsule nitroglycerin 0.4 mg sublingual 0.4 mg SL Q5M PRN #30 tab 10/09/21 10/09/21 Rx tablet isosorbide mononitrate 60 mg 60 mg PO DAILY 30 Days #30 tab 10/10/21 Rx tablet,extended release 24 hr lisinopril 20 mg tablet 20 mg PO DAILY 30 Days #30 tab 10/10/21 Rx Patient History Medical History BPH (benign prostatic hyperplasia) Chest pain (10/26/13) Coronary artery disease Dyslipidemia Former smoker Gastroesophageal reflux disease Hearing deficit BL ACUÑA Hepatic steatosis Hyperlipidemia Hypertension Inguinal hernia Left inguinal hernia Lichen planus Multiple pulmonary nodules Myocardial Infarction 1995 Osteoarthritis Past myocardial infarction Peripheral vascular disease Post traumatic stress disorder Prediabetes Pulmonary emphysema Schatzki's ring Sinus bradycardia Surgical History History of bowel resection History of cardiac cath - [facility] - SOB - ANGIOPLASTY (NO STENTS) - FOLLOWS W/ DR. HOUSER 1995 - [facility] [place] - NO STENTS/ANGIOPLASTY History of carotid endarterectomy LEFT. 2009 History of cataract surgery Bilateral. left 2019. Dr Hilton History of cholecystectomy History of colonoscopy History of esophagogastroduodenoscopy (EGD) Hx of cholecystectomy S/P small bowel resection Family History Brother Carotid artery stenosis Heart disease Hypertension Rheumatoid arthritis Sister Heart disease Diabetes Father Coronary heart disease Myocardial infarction Brother Rheumatoid arthritis Denies family history of Ovarian cancer Prostate cancer Breast cancer Lung cancer Colorectal cancer Stroke Social History Smoking Status: Never smoker Tobacco Type: Cigars Cigarettes Per Day: 20; Second Hand Exposure: No; Hx Alcohol Use: No Hx Substance Use: No Preferred Language: Belgian Communication Ability: Effective Visual Impairment: Limited Hearing Ability: Use of Hearing Aid Probation Worker Required: No Beliefs That Will Affect Care: None marital status: Current Living Situation: Spouse current occupational status: retired How many Children do You have: 2 Feels Safe at Home: Yes Childhood Exposure to Second-Hand Smoke: No caffeine: Yes Dental Care, Regularly: Yes Physical Activity Frequency: 3-4 Times per Week Seatbelt Use: always Sunscreen Use: Yes Assistive Devices: None Review of Systems Review of Systems: All systems reviewed & are unremarkable except as noted in HPI & below Physical Exam Physical Exam: General: Comfortable HEENT: Sclerae anicteric, Mask in place Lungs: Clear to auscultation bilaterally, no crackles or wheezes Cardiac: Regular rate and rhythm, 2 out of 6 systolic ejection murmur Vascular: Right radial artery access site with no ecchymosis, hematoma. Distal pulse and sensation intact. Abdomen: Soft, nontender Extremities: Well perfused, no peripheral edema Neuro: Nonfocal Psych: Alert orient x3, normal affect and mood PG Care Time/CCT Total # of Minutes Spent Total Time Spent with Patient: Total time spent is greater than 50% in coordination of care (as documented) at patient's floor/unit and/or counseling patient: Coding Level of Care Code 12076 Initial Inpt Care Lvl 3 Diagnoses CAD (coronary atherosclerotic disease) I25.10
== END 2021-10-10 17:42 | disposition home or self-care (01) ==
LOC: ED 18:30 → SUATTDRO 22:19 → EDINP 22:19 → INTOOBSV 22:19 → EDINP 10-10 01:23